=== PATIENT | male | born 1965 | race Caucasian/White ===

== ENCOUNTER → 2017-05-23 | Outpatient (CLI) | payer OTHER ==
--- NOTE | 2017-05-23 12:58 | RADIOLOGY REPORT (SQ) ---
EXAM DESCRIPTION: INJECT VENOUS ACCESS DEVICE COMPLETED DATE/TIME: 05/23/2017 11:26 am REASON FOR STUDY: Z45.2 ENCOUNTER FOR ADJUSTMENT AND MANAGEMENT OF VAD Z45.2 ENCOUNTER FOR ADJUSTME NT AND MANAGEMENT OF VAD COMPARISON: None. FLUOROSCOPY TIME: 29 seconds 4 series of digital images saved to PACS. TECHNIQUE: Intra-operative images acquired during surgical procedure to evaluate progress. NUMBER OF IMAGES: Cine fluoroscopic images. LIMITATIONS: None. FINDINGS: Patient had an unsuccessful chemotherapy infusion through the left sided permanent central line yesterday. He was sent today for evaluation of the pre-existing left permanent central line wi contrast injection under fluoro. The left anterior upper chest was prepped and draped in sterile fashion. A Stern needle was used to access the left-sided infusion port. On the initial fluoroscopy, the port is transected where it fruit or nut crops farm manager sses between the 1st rib and clavicle, with a 7 to 10 cm long segment of catheter in the right atrium . The hub of the catheter was injected with 10 mL of Isovue-300 contrast. There is a perforation in e catheter tubing with contrast tracking in the soft toward the axilla, and pooling of contrast betwe en the left 1st rib and clavicle. No intravascular contrast is identified. These findings were discussed with Dr. Harris. The patient had a successful chemotherapy infusion 2 weeks ago, and unsuccessful infusion yesterday. Removal of the existing left-sided catheter, snare of the catheter fragment from the right heart, and placement of a new right-sided permanent central l ine for chemotherapy infusion was discussed with Dr. Harris. This was also discussed with patient, who agreed to the procedure. Plan is to remove the pre-existing left permanent central line and catheter fragment, and place a new right-sided permanent central line tomorrow at [facility] in special procedures. IMPRESSION: Fragmentation of left permanent central line at the level of the 1st rib/clavicle, with catheter fragment right heart. COMMENT: Quality ID [id number]: Final reports for procedures using fluoroscopy that document radiation exp osure indices, or exposure time and number of fluorographic images (if radiation exposure indices are not available) Please consult full operative report of the attending physician for description of the procedure. TECHNICAL DOCUMENTATION: JOB ID: [id number] [employer]- All Rights Reserved
== END ==
LOC: RAD 10:40
PROVIDERS: ATTEND Internal Medicine
DX: Z45.2 Encounter for adjustment and management of vascular access device (principal)
CPT/HCPCS: 36598

== ENCOUNTER → 2017-07-26 | Outpatient (CLI) | payer OTHER ==
[2017-07-26 11:39] LABS: ABSOLUTE BASOPHILS # (AUTO) 0.1 10^3/uL (0.0-0.2); ABSOLUTE EOSINOPHILS # (AUTO) 0.1 10^3/uL (0.0-0.6); ABSOLUTE LYMPHOCYTES (AUTO) 2.7 10^3/uL (0.5-4.7); ABSOLUTE MONOCYTES (AUTO) 0.9 10^3/uL (0.1-1.4); ABSOLUTE NEUT (AUTO) 10.5 10^3/uL (1.7-8.2); BASOPHILS % (AUTO) 0.4 % (0-2); EOSINOPHILS % (AUTO) 0.4 % (0-6); HEMATOCRIT 42.5 % (37.9-51.0); HEMOGLOBIN 14.3 g/dL (13.5-17.0); LYMPHOCYTES % (AUTO) 19.1 % (13-45); MEAN CORPUSCULAR HEMOGLOBIN 30.1 pg (27.0-33.4); MEAN CORPUSCULAR HGB CONC 33.6 g/dL (32.0-36.0); MEAN CORPUSCULAR VOLUME 90 fl (80-97); MONOCYTES % (AUTO) 6.5 % (3-13); PLATELET COUNT 253 10^3/uL (150-450); RED BLOOD COUNT 4.74 10^6/uL (4.35-5.55); RED CELL DISTRIBUTION WIDTH 14.4 % (11.5-14.0); SEGMENTED NEUTROPHILS % (AUTO) 73.6 % (42-78); TOTAL CELLS COUNTED % (AUTO) 100 %; WHITE BLOOD COUNT 14.3 10^3/uL (4.0-10.5)
[2017-07-26 12:20] LABS: ALANINE AMINOTRANSFERASE 22 U/L (21-72); ALKALINE PHOSPHATASE 118 U/L (38-126); ANION GAP 14 (5-19); ASPARTATE AMINO TRANSFERASE 15 U/L (17-59); BILIRUBIN,DIRECT 0.3 mg/dL (0.0-0.4); BILIRUBIN,TOTAL 0.5 mg/dL (0.2-1.3); BLOOD UREA NITROGEN 15 mg/dL (7-20); C-REACTIVE PROTEIN 31.4 mg/L (<10.0); CALCIUM 9.8 mg/dL (8.4-10.2); CARBON DIOXIDE 31 mmol/L (22-30); CHLORIDE 99 mmol/L (98-107); GLUCOSE 185 mg/dL (75-110); POTASSIUM 3.5 mmol/L (3.6-5.0); SODIUM 144.4 mmol/L (137-145); TOTAL PROTEIN 7.4 g/dL (6.3-8.2)
[2017-07-26 12:27] LABS: ERYTHROCYTE SEDIMENTATION RATE 53 mm/hr (0-20)
--- NOTE | 2017-07-26 14:03 | RADIOLOGY REPORT (SQ) ---
EXAM DESCRIPTION: FOOT RIGHT COMPLETE COMPLETED DATE/TIME: 07/26/2017 11:21 am REASON FOR STUDY: NON PRESSURE ULCER RT FOOT FAT LAYER EXPOSED L97.512 NON-PRS CHRONIC ULCER OTH NE T RIGHT FOOT W FAT LAYER COMPARISON: None. NUMBER OF VIEWS: Three views. TECHNIQUE: AP, lateral and oblique radiographic images acquired of the right foot. LIMITATIONS: None. FINDINGS: Periarticular cortical destruction 1st interphalangeal joint. Adjacent skin ulceration. No definite foreign body. IMPRESSION: Osteomyelitis. TECHNICAL DOCUMENTATION: JOB ID: [id number] [employer]- All Rights Reserved
== END ==
LOC: WC 10:49
PROVIDERS: ATTEND Preventive Medicine Undersea and Hyperbaric Medicine
DX: L97.512 Non-pressure chronic ulcer of other part of right foot with fat layer exposed (principal)
CPT/HCPCS: 36415; 80053; 83036; 85025; 85652; 86140

== ENCOUNTER 2017-08-13 11:36 | Inpatient (IN) | payer OTHER ==
[2017-08-13] MEDS ORDERED: IPRATROPIUM/ALBUTEROL 0.5-2.5 MG/3 ML AMPUL NEB PRN (14:09)
[2017-08-13] MEDS ORDERED: ACETAMINOPHEN 325 MG TABLET PO PRN (14:09)
[2017-08-13] MEDS ORDERED: DEXTROSE 40% GEL 15 GM TUBE PO PRN ×4 (14:14→17:58)
[2017-08-13] MEDS ORDERED: GLUCAGON,HUMAN RECOMB 1 MG INJ IM PRN (14:14)
[2017-08-13] MEDS ORDERED: DEXTROSE 50%-WATER 25 GM/50 ML DISP.SYRIN IV PRN ×4 (14:14→17:58)
[2017-08-13] MEDS ORDERED: HYDRALAZINE HCL INJ/PF 20 MG/1 ML SDV IV PRN (14:30)
--- NOTE | 2017-08-13 14:35 | PDOC H&P ---
History of Present Illness Admission Date/PCP: 08/13/17 11:36 CAL COLE DPM Patient complains of: Rt toe pain History of Present Illness: NELY NEW is a 52 year old male with a past medical history of colon cancer with metastasis to the liver; last chemotherapy treatment approximately 2 weeks ago, insulin-dependent diabetes mellitus, and hypertension who was received as a direct admit from Dr. Cole's office for a complaint of right great toe pain with a chronic wound and concern for osteomyelitis. The patient states that the current wound has been present for 6-8 weeks. He states that Dr. Cole recently did an outpatient debridement of the toe and at his follow- up appointment was told that he was concerned that the toe was becoming gangrenous and may require amputation. The patient reports serous drainage, denies purulent drainage, foul smell, edema, or erythema of the surrounding skin. Unfortunately, outpatient records are not available for review. The patient will be admitted to the floor for workup of chronic diabetic foot wound with possible osteomyelitis. At the time of admission and dictation, the patient's home medications are unavailable. The patient is able to identify his home regiment; pharmacy staff have been notified for assistance. Past Medical History Cardiac Medical History: Reports: Hypertension Pulmonary Medical History: Reports: None EENT Medical History: Reports: None Neurological Medical History: Reports: None Endocrine Medical History: Reports: Diabetes Mellitus Type 1 Renal/ Medical History: Reports: None Malignancy Medical History: Reports: Colorectal Cancer, Liver Cancer GI Medical History: Reports: None Musculoskeltal Medical History: Reports: None Skin Medical History: Reports: None Psychiatric Medical History: Reports: General Anxiety Disorder Traumatic Medical History: Reports: None Hematology: Reports: None Infectious Medical History: Reports: None Past Surgical History Past Surgical History: Reports: Other - Partial colectomy Social History Information Source: Patient Lives with: Spouse/Significant other Smoking Status: Never Smoker Frequency of Alcohol Use: None Drugs: None Hx Prescription Drug Abuse: No - Advance Directive Resuscitation Status: Full Code Surrogate healthcare decision maker:: The patient's significant other; Nika Hurd ([phone]) Family History Family History: Other - Unknown; patient reports that he is adopted Parental Family History Reviewed: No - Unavailable; pt is adopted Children Family History Reviewed: NA Sibling(s) Family History Reviewed.: Unknown Medication/Allergy Allergies/Adverse Reactions: No Known Allergies Allergy (Unverified 08/13/17 14:25) Review of Systems Constitutional: ABSENT: chills, fever(s), headache(s), weight gain, weight loss Eyes: ABSENT: visual disturbances Ears: ABSENT: hearing changes Cardiovascular: ABSENT: chest pain, dyspnea on exertion, edema, orthropnea, palpitations Respiratory: ABSENT: cough, hemoptysis Gastrointestinal: ABSENT: abdominal pain, constipation, diarrhea, hematemesis, hematochezia, nausea, vomiting Genitourinary: ABSENT: dysuria, hematuria Musculoskeletal: PRESENT: joint swelling - Rt great toe Integumentary: PRESENT: wounds - Chronic wound to Rt great toe. ABSENT: rash Neurological: ABSENT: abnormal gait, abnormal speech, confusion, dizziness, focal weakness, syncope Psychiatric: ABSENT: anxiety, depression, homidical ideation, suicidal ideation Endocrine: ABSENT: cold intolerance, heat intolerance, polydipsia, polyuria Hematologic/Lymphatic: ABSENT: easy bleeding, easy bruising Physical Exam Vital Signs: Temp Pulse Resp BP Pulse Ox 97.9 F 87 16 118/86 H 95 08/13/17 12:14 08/13/17 12:14 08/13/17 12:14 08/13/17 12:14 08/13/17 12:14 Intake & Output 08/12/17 08/13/17 08/14/17 06:59 06:59 06:59 Weight 110 kg General appearance: PRESENT: no acute distress, obese, well-developed, well- nourished Head exam: PRESENT: atraumatic, normocephalic Eye exam: PRESENT: conjunctiva pink, EOMI, PERRLA. ABSENT: scleral icterus Ear exam: PRESENT: normal external ear exam Mouth exam: PRESENT: moist, tongue midline Neck exam: ABSENT: carotid bruit, JVD, lymphadenopathy, thyromegaly Respiratory exam: PRESENT: clear to auscultation rona, symmetrical, unlabored. ABSENT: rales, rhonchi, wheezes Cardiovascular exam: PRESENT: RRR, +S1, +S2. ABSENT: diastolic murmur, rubs, systolic murmur Pulses: PRESENT: normal dorsalis pedis pul Vascular exam: PRESENT: normal capillary refill GI/Abdominal exam: PRESENT: normal bowel sounds, soft. ABSENT: distended, guarding, mass, organolmegaly, rebound, tenderness Rectal exam: PRESENT: deferred Extremities exam: PRESENT: full ROM. ABSENT: calf tenderness, clubbing, pedal edema Neurological exam: PRESENT: alert, awake, oriented to person, oriented to place , oriented to time, oriented to situation, CN II-XII grossly intact. ABSENT: motor sensory deficit Psychiatric exam: PRESENT: appropriate affect, normal mood. ABSENT: homicidal ideation, suicidal ideation Skin exam: PRESENT: dry, warm, other - The dorsal aspect of the right great toe has an a 2 cm long linear wound. The wound bed is not visualized. There is slight serosanguineous drainage. No foul smell. The toe is edematous with slight erythema to the medial portion of the toe.. ABSENT: cyanosis, intact, rash Assessment & Plan - Diagnosis (1) Diabetic foot ulcer Qualifiers: Diabetic foot ulcer location: toe Diabetes mellitus type: type 1 Laterality: right Non-pressure ulcer stage: unspecified non-pressure ulcer stage Qualified Code(s): E10.621 - Type 1 diabetes mellitus with foot ulcer; L97.519 - Non-pressure chronic ulcer of other part of right foot with unspecified severity; L97.519 - Non-pressure chronic ulcer of other part of right foot with unspecified severity; L97.519 - Non-pressure chronic ulcer of other part of right foot with unspecified severity; L97.519 - Non-pressure chronic ulcer of other part of right foot with unspecified severity Is this a current diagnosis for this admission?: Yes Plan: The patient was referred as a direct admit from Dr. Cole's office. Patient states that he recently underwent outpatient debridement and at follow-up appointment was told that he would likely require amputation. Unfortunately, outpatient records are unavailable. We will obtain baseline lab work; CBC, CMP Will obtain x-ray with follow-up MRI likely. Anticipate need for surgical consultation. Will hold antibiotics pending initial workup. (2) Insulin dependent diabetes mellitus Is this a current diagnosis for this admission?: Yes Plan: The patient is placed on a consistent carb diet. We will resume home medication regimen once reconciled by pharmacy. Accu-Cheks before meals and at bedtime with Humalog for sliding scale coverage. (3) Hypertension Is this a current diagnosis for this admission?: Yes Plan: The patient is placed on a cardiac diet. We will resume home medication regimen once reconciled by pharmacy. IV hydralazine as needed. (4) Colon cancer metastasized to liver Plan: The patient is followed by Dr. Harris; last chemotherapy appointment was approximately 2 weeks ago. Will consider consultation following review of laboratory workup, or if the patient remains admitted for an extended stay. - Time Time Spent: 50 to 70 Minutes - Inpatient Certification Medical Necessity: Need for Surgery - probable amputation
[2017-08-13 15:02] LABS: ABSOLUTE EOSINOPHILS # (AUTO) 0.1 10^3/uL (0.0-0.6); ABSOLUTE LYMPHOCYTES (AUTO) 1.5 10^3/uL (0.5-4.7); ABSOLUTE MONOCYTES (AUTO) 0.7 10^3/uL (0.1-1.4); ABSOLUTE NEUT (AUTO) 4.6 10^3/uL (1.7-8.2); BASOPHILS % (AUTO) 0.7 % (0-2); EOSINOPHILS % (AUTO) 1.8 % (0-6); HEMATOCRIT 39.7 % (37.9-51.0); HEMOGLOBIN 13.7 g/dL (13.5-17.0); MEAN CORPUSCULAR HEMOGLOBIN 30.3 pg (27.0-33.4); MEAN CORPUSCULAR HGB CONC 34.5 g/dL (32.0-36.0); MEAN CORPUSCULAR VOLUME 88 fl (80-97); PLATELET COUNT 214 10^3/uL (150-450); RED BLOOD COUNT 4.52 10^6/uL (4.35-5.55); RED CELL DISTRIBUTION WIDTH 14.3 % (11.5-14.0); SEGMENTED NEUTROPHILS % (AUTO) 65.5 % (42-78); TOTAL CELLS COUNTED % (AUTO) 100 %
[2017-08-13 15:22] LABS: ALANINE AMINOTRANSFERASE 27 U/L (21-72); ALBUMIN 3.5 g/dL (3.5-5.0); ALKALINE PHOSPHATASE 110 U/L (38-126); ANION GAP 5 (5-19); ASPARTATE AMINO TRANSFERASE 22 U/L (17-59); BILIRUBIN,DIRECT 0.3 mg/dL (0.0-0.4); BILIRUBIN,TOTAL 0.3 mg/dL (0.2-1.3); BLOOD UREA NITROGEN 10 mg/dL (7-20); CALCIUM 9.4 mg/dL (8.4-10.2); CARBON DIOXIDE 34 mmol/L (22-30); CHLORIDE 98 mmol/L (98-107); GLUCOSE 258 mg/dL (75-110); POTASSIUM 4.3 mmol/L (3.6-5.0); SODIUM 137.4 mmol/L (137-145); TOTAL PROTEIN 6.6 g/dL (6.3-8.2)
--- NOTE | 2017-08-13 15:45 | RADIOLOGY REPORT (SQ) ---
EXAM DESCRIPTION: TOE RIGHT COMPLETED DATE/TIME: 08/13/2017 2:54 pm REASON FOR STUDY: 1st great toe pain COMPARISON: None. NUMBER OF VIEWS: Three views of the right great toe. LIMITATIONS: None. FINDINGS: Osseous destruction about the great toe IP joint. Fragmentation and loss of bone in the d istal aspect of the proximal phalanx and base of the distal phalanx. Adjacent soft tissue irregulari ty suggests ulcer. Adjacent bones are intact. The proximal half of the proximal phalanx of the grea t toe appears to be normal. OTHER: No other significant finding. IMPRESSION: Destructive process centered at the great toe IP joint, presumably osteomyelitis. TECHNICAL DOCUMENTATION: JOB ID: [id number]
[2017-08-13] MEDS ORDERED: GLUCAGON,HUMAN RECOMB 1 MG INJ SUBCUT PRN (17:58)
--- NOTE | 2017-08-13 17:58 | PDOC CONSULTATION ---
Consultation Consult Date: 08/13/17 Consult reason:: Diabetic foot infection History of Present Illness Admission Date/PCP: 08/13/17 11:36 CAL NAYLOR DPM Patient complains of: Infection of right great toe History of Present Illness: This is a 52-year-old gentleman who presents for admission to hospital secondary to an infected right great toe. He has been admitted by the hospitalist medicine service. He reports that over the past several months he has had an ulcer on the plantar aspect of the right great toe. He has been seen as an outpatient wound care center. Because of worsening infection, the patient presented to the hospital for admission. I was asked to see the patient in consultation. An MRI has been ordered by the hospitalist medicine service and is pending. Past Medical History Cardiac Medical History: Reports: Hypertension Pulmonary Medical History: Reports: None EENT Medical History: Reports: None Neurological Medical History: Reports: None Endocrine Medical History: Reports: Diabetes Mellitus Type 1 Renal/ Medical History: Reports: None Malignancy Medical History: Reports: Colorectal Cancer, Liver Cancer GI Medical History: Reports: None Musculoskeltal Medical History: Reports: None Skin Medical History: Reports: None Psychiatric Medical History: Reports: General Anxiety Disorder Traumatic Medical History: Reports: None Hematology: Reports: None Infectious Medical History: Reports: None Past Surgical History Past Surgical History: Reports: Other - Partial colectomy Social History Lives with: Spouse/Significant other Smoking Status: Never Smoker Frequency of Alcohol Use: None Drugs: None Hx Prescription Drug Abuse: No - Advance Directive Resuscitation Status: Full Code Family History Family History: Other - Unknown; patient reports that he is adopted Parental Family History Reviewed: No Children Family History Reviewed: No Sibling(s) Family History Reviewed.: No Medication/Allergy Allergies/Adverse Reactions: No Known Allergies Allergy (Unverified 08/13/17 14:25) Physical Exam Vital Signs: Temp Pulse Resp BP Pulse Ox 98.2 F 76 16 115/75 96 08/13/17 15:57 08/13/17 15:57 08/13/17 15:57 08/13/17 15:57 08/13/17 15:57 Intake & Output 08/12/17 08/13/17 08/14/17 06:59 06:59 06:59 Intake Total 266 Balance 266 Weight 110 kg General appearance: PRESENT: other - Chronically ill-appearing male peers somewhat older than his stated age. Respiratory exam: PRESENT: clear to auscultation rona Cardiovascular exam: PRESENT: RRR GI/Abdominal exam: PRESENT: other - Soft, nontender. Musculoskeletal exam: PRESENT: other - The right great toe is inflamed and erythematous. There is a open wound on the plantar aspect of the right great toe measuring approximately 2.5 cm, with purulent drainage from the wound. There is a palpable dorsalis pedis as well as posterior tibial pulse. Results Laboratory Results: 08/13/17 14:50 08/13/17 14:50 08/13/17 08/13/17 14:50 14:50 WBC 7.0 RBC 4.52 Hgb 13.7 Hct 39.7 MCV 88 MCH 30.3 MCHC 34.5 RDW 14.3 H Plt Count 214 Seg Neutrophils % 65.5 Lymphocytes % 22.0 Monocytes % 10.0 Eosinophils % 1.8 Basophils % 0.7 Absolute Neutrophils 4.6 Absolute Lymphocytes 1.5 Absolute Monocytes 0.7 Absolute Eosinophils 0.1 Absolute Basophils 0.0 Sodium 137.4 Potassium 4.3 Chloride 98 Carbon Dioxide 34 H Anion Gap 5 BUN 10 Creatinine 0.68 Est GFR ( Amer) > 60 Est GFR (Non-Af Amer) > 60 Glucose 258 H Calcium 9.4 Total Bilirubin 0.3 AST 22 ALT 27 Alkaline Phosphatase 110 Total Protein 6.6 Albumin 3.5 Impressions: Toe X-Ray 08/13/17 00:00 IMPRESSION: Destructive process centered at the great toe IP joint, presumably osteomyelitis. Assessment & Plan - Diagnosis (1) Diabetic foot ulcer Qualifiers: Diabetic foot ulcer location: toe Diabetes mellitus type: type 1 Laterality: right Non-pressure ulcer stage: unspecified non-pressure ulcer stage Qualified Code(s): E10.621 - Type 1 diabetes mellitus with foot ulcer; L97.519 - Non-pressure chronic ulcer of other part of right foot with unspecified severity; L97.519 - Non-pressure chronic ulcer of other part of right foot with unspecified severity; L97.519 - Non-pressure chronic ulcer of other part of right foot with unspecified severity; L97.519 - Non-pressure chronic ulcer of other part of right foot with unspecified severity Is this a current diagnosis for this admission?: Yes - Plan Summary Plan Summary: The patient is to have an MRI of the foot tonight. Clinically, I do not think that the toe is salvageable. I discussed this with the patient. The patient understands this. I would recommend we make him n.p.o. after midnight in anticipation of redictation of the right great toe tomorrow morning. This was discussed in detail with patient. He understands and agrees to proceed.
--- NOTE | 2017-08-13 18:07 | RADIOLOGY REPORT (SQ) ---
EXAM DESCRIPTION: MRI RT LOWER EXTREMITY WITHOUT COMPLETED DATE/TIME: 08/13/2017 5:54 pm REASON FOR STUDY: ? osteomyelitis Rt great toe/foot COMPARISON: Radiographs from earlier today demonstrating osteomyelitis. TECHNIQUE: Multiplanar imaging of the right forefoot to include fat and fluid sensitive sequences. LIMITATIONS: None. FINDINGS: BONE MARROW: As seen radiographically, extensive destruction of the great toe distal proxi mal phalanx and proximal distal phalanx, replaced by intermediate T1 soft tissue. Complete loss of b one integrity here with edema extending to the base of the proximal phalanx. No drainable fluid winifred ections detected. Normal marrow signal in the metatarsals and adjacent toes. SOFT TISSUES: As above. Amorphous inflammatory tissue at the site of osteomyelitis without drainable fluid collection. No tenosynovitis evident. OTHER: No other significant finding. IMPRESSION: Extensive destruction of the great toe as above. Consistent with osteomyelitis involvin g the great toe phalanges. Normal marrow signal in the metatarsal. No drainable abscess. TECHNICAL DOCUMENTATION: JOB ID: [id number] [employer]- All Rights Reserved
[2017-08-13] MEDS: HEPARIN SOD (PORCINE) 5,000 UNIT/ML 1 ML SYRINGE SUBCUT SCH (21:41)
[2017-08-13] MEDS: FAMOTIDINE 20 MG TABLET PO SCH (21:49)
[2017-08-13] MEDS: OXYCODONE HCL SR 10 MG TABLET PO SCH (21:50)
[2017-08-13] MEDS: ALPRAZOLAM 0.5 MG TABLET PO PRN (23:01)
[2017-08-14] MEDS: HEPARIN SOD (PORCINE) 5,000 UNIT/ML 1 ML SYRINGE SUBCUT SCH ×3 (05:13→21:27)
[2017-08-14 06:37] LABS: HEMATOCRIT 42.1 % (37.9-51.0); HEMOGLOBIN 14.1 g/dL (13.5-17.0); MEAN CORPUSCULAR HGB CONC 33.4 g/dL (32.0-36.0); MEAN CORPUSCULAR VOLUME 90 fl (80-97); PLATELET COUNT 219 10^3/uL (150-450); RED BLOOD COUNT 4.68 10^6/uL (4.35-5.55); RED CELL DISTRIBUTION WIDTH 14.7 % (11.5-14.0); WHITE BLOOD COUNT 5.7 10^3/uL (4.0-10.5)
[2017-08-14 06:52] LABS: ANION GAP 10 (5-19); BLOOD UREA NITROGEN 9 mg/dL (7-20); CALCIUM 9.7 mg/dL (8.4-10.2); CARBON DIOXIDE 30 mmol/L (22-30); CHLORIDE 100 mmol/L (98-107); GLUCOSE 178 mg/dL (75-110); SODIUM 139.8 mmol/L (137-145)
[2017-08-14] MEDS ORDERED: RINGERS SOLUTION,LACTATED 1,000 ML IV PRN (08:57)
[2017-08-14] MEDS: OXYCODONE HCL SR 10 MG TABLET PO SCH ×2 (09:42→21:27)
[2017-08-14] MEDS: FAMOTIDINE 20 MG TABLET PO SCH ×2 (09:42→21:27)
[2017-08-14] MEDS ORDERED: BUPIVACAINE HCL 0.5%-EPI 1:200000 INJ/PF 30 ML VIAL ONE (09:59)
[2017-08-14] MEDS ORDERED: FENTANYL CITRATE INJ/PF 100 MCG/2 ML AMPUL ONE (10:38)
[2017-08-14] MEDS ORDERED: MIDAZOLAM 2 MG/2 ML INJ ONE (10:39)
[2017-08-14] MEDS ORDERED: PROPOFOL INJ 200 MG/20 ML VIAL IV ONE (10:39)
[2017-08-14] MEDS ORDERED: KETAMINE HCL INJ 500 MG/10 ML VIAL ONE (10:43)
[2017-08-14] MEDS ORDERED: FERROUS SULFATE 325 MG TABLET PO SCH (11:00)
[2017-08-14] MEDS ORDERED: BUPIVACAINE HCL 0.25 % INJ/PF (2.5 MG/1 ML) 30 ML VIAL ONE (11:09)
[2017-08-14] MEDS ORDERED: FENTANYL CITRATE INJ/PF 100 MCG/2 ML AMPUL IV PRN ×3 (11:27)
[2017-08-14] MEDS ORDERED: PROMETHAZINE HCL INJ 25 MG/1 ML VIAL IV PRN (11:27)
[2017-08-14] MEDS ORDERED: DIPHENHYDRAMINE HCL 50 MG/ML VIAL IV PRN (11:27)
[2017-08-14] MEDS ORDERED: MORPHINE SULFATE 10 MG/ML INJ IV PRN (11:27)
[2017-08-14] MEDS ORDERED: MEPERIDINE HCL/PF INJ 25 MG/1 ML DISP.SYRIN IV PRN (11:27)
[2017-08-14] MEDS ORDERED: CEFAZOLIN 2 GM/D5W RTU 2 GM/50 ML RTUPB IV SCH (12:00)
[2017-08-14] MEDS ORDERED: BUPIVACAINE HCL 0.25 % INJ/PF (2.5 MG/1 ML) 30 ML VIAL INJ ONE (12:07)
--- NOTE | 2017-08-14 12:11 | Operative Report ---
Operative Report DATE OF SURGERY: 08/14/17 PREOPERATIVE DIAGNOSIS: Gangrene right great toe POSTOPERATIVE DIAGNOSIS: Gangrene right great toe OPERATION: Ray amputation of right great toe SURGEON: SASHA LOPEZ ANESTHESIA: LMAC TISSUE REMOVED OR ALTERED: Right great toe sent to pathology. Fragments of bone and soft tissue sent to microbiology for culture sensitivity and Gram stain COMPLICATIONS: none ESTIMATED BLOOD LOSS: Minimal INTRAOPERATIVE FINDINGS: Infected right great toe with necrotic changes PROCEDURE: After informed consent, patient taken to the operating room. After menstruation of IV sedation, the patient was prepped and draped in sterile fashion. 0.25% Marcaine was used for local anesthesia. An elliptical incision was made encompassing the right great toe. This was done with a 10 blade. Electrosurgery was then utilized to dissect through subcutaneous tissues. The first metatarsal head was identified. This was transected using a bone cutter. A rongeur was then used to smooth the edges. The amplitude toe was passed off the operative field and sent to pathology. Fragments of bone and soft tissue were sent to microbiology. Hemostasis was assured. 2-0 Vicryl suture was used to approximate the soft tissue. Interrupted 2-0 nylon sutures were then used in a vertical mattress fashion to close the skin. Sterile dressing was applied. The patient is awake from anesthesia and transferred to the recovery room.
[2017-08-14] MEDS ORDERED: PIPERACILLIN/TAZOBACTAM 4.5 GM VIAL IV SCH (12:59)
[2017-08-14] MEDS: INSULIN REG, HUMAN 100 UNIT/ML 3 ML VIAL (PYX) SUBCUT PRN ×2 (13:36→18:03)
[2017-08-14] MEDS: OXYCODONE HCL IR 5 MG TABLET PO PRN ×2 (13:51→18:03)
--- NOTE | 2017-08-14 14:29 | PDOC PROGRESS REPORT ---
Subjective Progress Note for:: 08/14/17 Subjective:: The patient is a 52-year-old male with a past medical history of insulin- dependent diabetes mellitus, hypertension, and colon cancer with liver metastasis who was admitted on 08/13/17 for a chronic wound to the right great toe concerning for osteomyelitis. Patient underwent a toe and mid first metatarsal amputation on 08/14/2017. The patient was seen on morning rounds prior to his surgery today. He states that his pain is well-controlled with his outpatient pain medications currently but he is concerned about increased pain following surgery. He also has questions with regard to the length of antibiotic therapy and timing of his discharge to home. He states that he is supposed to be getting in 2 weeks. Reason For Visit: RELATED TO GANGRENE Physical Exam Vital Signs: Temp Pulse Resp BP Pulse Ox 97.6 F 61 11 L 129/88 H 97 08/14/17 12:35 08/14/17 12:35 08/14/17 12:35 08/14/17 12:35 08/14/17 12:35 Intake & Output 08/13/17 08/14/17 08/15/17 06:59 06:59 06:59 Intake Total 686 1050 Output Total 250 Balance 686 800 Weight 101.8 kg General appearance: PRESENT: no acute distress, well-developed, well-nourished, other - Overweight Head exam: PRESENT: atraumatic, normocephalic Eye exam: PRESENT: conjunctiva pink, EOMI, PERRLA. ABSENT: scleral icterus Ear exam: PRESENT: normal external ear exam Mouth exam: PRESENT: moist, tongue midline Neck exam: ABSENT: carotid bruit, JVD, lymphadenopathy, thyromegaly Respiratory exam: PRESENT: clear to auscultation rona, symmetrical, unlabored. ABSENT: rales, rhonchi, wheezes Cardiovascular exam: PRESENT: RRR, +S1, +S2. ABSENT: diastolic murmur, rubs, systolic murmur Pulses: PRESENT: normal dorsalis pedis pul Vascular exam: PRESENT: normal capillary refill GI/Abdominal exam: PRESENT: normal bowel sounds, soft. ABSENT: distended, guarding, mass, organolmegaly, rebound, tenderness Rectal exam: PRESENT: deferred Extremities exam: PRESENT: full ROM, other - Right great toe with dressing in place; wound not visualized today.. ABSENT: calf tenderness, clubbing, pedal edema Neurological exam: PRESENT: alert, awake, oriented to person, oriented to place , oriented to time, oriented to situation, CN II-XII grossly intact. ABSENT: motor sensory deficit Psychiatric exam: PRESENT: appropriate affect, normal mood. ABSENT: homicidal ideation, suicidal ideation Skin exam: PRESENT: dry, intact, warm. ABSENT: cyanosis, rash Results Laboratory Results: 08/14/17 06:16 08/14/17 06:16 08/13/17 08/13/17 08/14/17 14:50 14:50 06:16 WBC 7.0 5.7 RBC 4.52 4.68 Hgb 13.7 14.1 Hct 39.7 42.1 MCV 88 90 MCH 30.3 30.0 MCHC 34.5 33.4 RDW 14.3 H 14.7 H Plt Count 214 219 Seg Neutrophils % 65.5 Lymphocytes % 22.0 Monocytes % 10.0 Eosinophils % 1.8 Basophils % 0.7 Absolute Neutrophils 4.6 Absolute Lymphocytes 1.5 Absolute Monocytes 0.7 Absolute Eosinophils 0.1 Absolute Basophils 0.0 Sodium 137.4 Potassium 4.3 Chloride 98 Carbon Dioxide 34 H Anion Gap 5 BUN 10 Creatinine 0.68 Est GFR ( Amer) > 60 Est GFR (Non-Af Amer) > 60 Glucose 258 H Calcium 9.4 Total Bilirubin 0.3 AST 22 ALT 27 Alkaline Phosphatase 110 Total Protein 6.6 Albumin 3.5 08/14/17 06:16 WBC RBC Hgb Hct MCV MCH MCHC RDW Plt Count Seg Neutrophils % Lymphocytes % Monocytes % Eosinophils % Basophils % Absolute Neutrophils Absolute Lymphocytes Absolute Monocytes Absolute Eosinophils Absolute Basophils Sodium 139.8 Potassium 4.0 Chloride 100 Carbon Dioxide 30 Anion Gap 10 BUN 9 Creatinine 0.71 Est GFR ( Amer) > 60 Est GFR (Non-Af Amer) > 60 Glucose 178 H Calcium 9.7 Total Bilirubin AST ALT Alkaline Phosphatase Total Protein Albumin Impressions: Lower Extremity MRI 08/13/17 00:00 IMPRESSION: Extensive destruction of the great toe as above. Consistent with osteomyelitis involving the great toe phalanges. Normal marrow signal in the metatarsal. No drainable abscess. Toe X-Ray 08/13/17 00:00 IMPRESSION: Destructive process centered at the great toe IP joint, presumably osteomyelitis. Assessment & Plan - Diagnosis (1) Diabetic foot ulcer Qualifiers: Diabetic foot ulcer location: toe Diabetes mellitus type: type 1 Laterality: right Non-pressure ulcer stage: unspecified non-pressure ulcer stage Qualified Code(s): E10.621 - Type 1 diabetes mellitus with foot ulcer; L97.519 - Non-pressure chronic ulcer of other part of right foot with unspecified severity; L97.519 - Non-pressure chronic ulcer of other part of right foot with unspecified severity; L97.519 - Non-pressure chronic ulcer of other part of right foot with unspecified severity; L97.519 - Non-pressure chronic ulcer of other part of right foot with unspecified severity Is this a current diagnosis for this admission?: Yes Plan: The patient was referred as a direct admit from Dr. Cole's office. Patient states that he recently underwent outpatient debridement and at follow-up appointment was told that he would likely require amputation. Unfortunately, outpatient records are unavailable. MRI demonstrated extensive destruction of the great toe consistent with osteomyelitis. Surgery's assistance and recommendations are greatly appreciated; patient underwent amputation of the right great toe today. He received Ancef on-call to the OR and was placed on Zosyn postoperatively. Wound cultures are pending. (2) Insulin dependent diabetes mellitus Is this a current diagnosis for this admission?: Yes Plan: The patient is placed on a consistent carb diet. Home medication reconciliation is completed; pt reportedly takes Toujeo 110 units daily. Blood glucose thus far do not indicate such a requirement. Will ask the conservation educator to meet with the patient to discuss dietary recommendations. Accu-Cheks before meals and at bedtime with Humalog for sliding scale coverage. Will hold on long acting insulin for now to further assess total insulin need; at this time, pt has only required 4 units of humalog. (3) Hypertension Is this a current diagnosis for this admission?: Yes Plan: The patient is placed on a cardiac diet. We will resume home medication; losartan. IV hydralazine as needed. (4) Colon cancer metastasized to liver Plan: The patient is followed by Dr. Harris; last chemotherapy appointment was approximately [address] Harris is consulted; appreciate his assistance and recommendations. Will continue the patient's outpatient pain medication regiment. - Time Time Spent with patient: 15-24 minutes Medications reviewed and adjusted accordingly: Yes - Inpatient Certification Based on my medical assessment, after consideration of the patient's comorbidities, presenting symptoms, or acuity I expect that the services needed warrant INPATIENT care.: Yes I certify that my determination is in accordance with my understanding of Medicare's requirements for reasonable and necessary INPATIENT services [42 CFR 412.3e].: Yes Medical Necessity: Need for IV Antibiotics
[2017-08-14] MEDS: PIPERACILLIN SODIUM/TAZOBACTAM 4.5 GM in NORMAL SALINE 100 ML IV SCH ×2 (17:41→23:00)
[2017-08-14] MEDS: GABAPENTIN 400 MG CAPSULE PO SCH (21:27)
[2017-08-14] MEDS: ALPRAZOLAM 0.5 MG TABLET PO PRN (21:41)
[2017-08-15] MEDS: OXYCODONE HCL IR 5 MG TABLET PO PRN ×3 (02:18→17:27)
[2017-08-15] MEDS: HEPARIN SOD (PORCINE) 5,000 UNIT/ML 1 ML SYRINGE SUBCUT SCH ×3 (05:53→21:26)
[2017-08-15] MEDS: GABAPENTIN 400 MG CAPSULE PO SCH ×3 (05:53→21:26)
[2017-08-15] MEDS: PIPERACILLIN SODIUM/TAZOBACTAM 4.5 GM in NORMAL SALINE 100 ML IV SCH ×4 (05:53→23:25)
[2017-08-15 07:06] LABS: HEMATOCRIT 40.6 % (37.9-51.0); HEMOGLOBIN 13.8 g/dL (13.5-17.0); MEAN CORPUSCULAR HEMOGLOBIN 30.3 pg (27.0-33.4); MEAN CORPUSCULAR HGB CONC 34.1 g/dL (32.0-36.0); MEAN CORPUSCULAR VOLUME 89 fl (80-97); PLATELET COUNT 220 10^3/uL (150-450); RED BLOOD COUNT 4.56 10^6/uL (4.35-5.55); RED CELL DISTRIBUTION WIDTH 14.3 % (11.5-14.0); WHITE BLOOD COUNT 5.7 10^3/uL (4.0-10.5)
[2017-08-15 07:32] LABS: ANION GAP 9 (5-19); BLOOD UREA NITROGEN 11 mg/dL (7-20); CALCIUM 9.5 mg/dL (8.4-10.2); CARBON DIOXIDE 33 mmol/L (22-30); CHLORIDE 99 mmol/L (98-107); GLUCOSE 184 mg/dL (75-110); SODIUM 140.6 mmol/L (137-145)
[2017-08-15] MEDS ORDERED: FLUOXETINE HCL 20 MG CAPSULE PO SCH (08:00)
[2017-08-15] MEDS: INSULIN REG, HUMAN 100 UNIT/ML 3 ML VIAL (PYX) SUBCUT PRN ×3 (08:34→17:27)
--- NOTE | 2017-08-15 08:47 | PDOC CONSULTATION ---
Consultation Consult Date: 08/15/17 Attending physician:: ARMIDA FARLEY Consult reason:: Patient stage IV colon cancer here with right great toe osteomyelitis status post toe amputation History of Present Illness Admission Date/PCP: 08/13/17 11:36 CAL NAYLOR DPM Patient complains of: Right foot pain, infection, stage IV colon cancer History of Present Illness: 52-year-old male with known history of stage IV colon cancer, diagnosed about a year ago now, has been on active chemotherapy until about 6 weeks ago. Over the last 3 months several issues have happened, first his left Port-A-Cath failed and chemotherapy infiltrated that area, ultimately there was no necrosis or damage to that area but the port could not be removed and another port was placed on the right chest wall. That port is functioning perfectly well. We restarted chemotherapy but unfortunately the emergence of a right great toe diabetic ulcer came about. This is being managed by wound care as an outpatient , but unfortunately it failed outpatient management and progress to full osteomyelitis and gangrene. Therefore toe amputation was necessary and this was done. We have not been able to give chemotherapy for about 6-8 weeks now. He has lost about 25 pounds just in the last 2 months but since diagnosis is last about 60-70 pounds. Past Medical History Cardiac Medical History: Reports: Hypertension Pulmonary Medical History: Reports: None EENT Medical History: Reports: None Neurological Medical History: Reports: None Endocrine Medical History: Reports: Diabetes Mellitus Type 1 Renal/ Medical History: Reports: None Malignancy Medical History: Reports: Colorectal Cancer - With liver metastasis, Liver Cancer GI Medical History: Reports: None Musculoskeltal Medical History: Reports: None Skin Medical History: Reports: None Psychiatric Medical History: Reports: General Anxiety Disorder Traumatic Medical History: Reports: None Hematology: Reports: None Infectious Medical History: Reports: None Past Surgical History Past Surgical History: Reports: Other - Partial colectomy Social History Information Source: Patient Lives with: Spouse/Significant other Smoking Status: Never Smoker Frequency of Alcohol Use: None Drugs: None Hx Prescription Drug Abuse: No - Advance Directive Resuscitation Status: Full Code Family History Family History: Other - Unknown; patient reports that he is adopted Parental Family History Reviewed: Yes Children Family History Reviewed: Yes Sibling(s) Family History Reviewed.: Yes Medication/Allergy Home Medications: Alprazolam [Xanax 0.25 mg Tablet] 0.25 mg PO Q8 08/14/17 Azelastine HCl 2 spray NASL BID 08/14/17 Baclofen [Baclofen 10 mg Tablet] 10 mg PO BIDP PRN 08/14/17 Eszopiclone [Lunesta] 3 mg PO QHS 08/14/17 Ferrous Sulfate [Feosol 325 mg Tablet] 325 mg PO Q2D 08/14/17 Fluoxetine HCl [Prozac 20 mg Capsule] 40 mg PO QAM 08/14/17 Gabapentin [Neurontin] 800 mg PO Q8 08/14/17 Insulin Aspart [Novolog Flexpen] 30 unit SQ MEALS 08/14/17 Insulin Glargine,Hum.rec.anlog [Toujeo Solostar] 110 unit SQ DAILY 08/14/17 Losartan Potassium [Cozaar 50 mg Tablet] 50 mg PO DAILY 08/14/17 Metformin HCl [Glucophage] 1,000 mg PO BIDBS 08/14/17 Multivitamin [Tab-A-Salma (Multiple Vitamin) Tablet] 1 tab PO DAILY 08/14/17 Omeprazole 20 mg PO ACBRKFST 08/14/17 Oxycodone HCl [Oxycontin] 30 mg PO Q12 08/14/17 Polyethylene Glycol 3350 [Miralax Powder 17 gm/Packet] 17 gm PO DAILY 08/14/17 Rivaroxaban [Xarelto] 20 mg PO WSUPPER 08/14/17 Allergies/Adverse Reactions: No Known Allergies Allergy (Unverified 08/13/17 14:25) Review of Systems Constitutional: ABSENT: chills, fever(s), headache(s), weight gain, weight loss Eyes: ABSENT: visual disturbances Ears: ABSENT: hearing changes Cardiovascular: ABSENT: chest pain, dyspnea on exertion, edema, orthropnea, palpitations Respiratory: ABSENT: cough, hemoptysis Gastrointestinal: ABSENT: abdominal pain, constipation, diarrhea, hematemesis, hematochezia, nausea, vomiting Genitourinary: ABSENT: dysuria, hematuria Musculoskeletal: ABSENT: joint swelling Integumentary: ABSENT: rash, wounds Neurological: ABSENT: abnormal gait, abnormal speech, confusion, dizziness, focal weakness, syncope Psychiatric: ABSENT: anxiety, depression, homidical ideation, suicidal ideation Endocrine: ABSENT: cold intolerance, heat intolerance, polydipsia, polyuria Hematologic/Lymphatic: ABSENT: easy bleeding, easy bruising Physical Exam Vital Signs: Temp Pulse Resp BP Pulse Ox 97.6 F 68 14 116/73 95 08/15/17 07:48 08/15/17 07:48 08/15/17 07:48 08/15/17 07:48 08/15/17 07:48 Intake & Output 08/14/17 08/15/17 08/16/17 06:59 06:59 06:59 Intake Total 686 2091 Output Total 250 Balance 686 1841 Weight 101.8 kg 105.2 kg General appearance: PRESENT: no acute distress, well-developed, well-nourished Head exam: PRESENT: atraumatic, normocephalic Eye exam: PRESENT: conjunctiva pink, EOMI, PERRLA. ABSENT: scleral icterus Ear exam: PRESENT: normal external ear exam Mouth exam: PRESENT: moist, tongue midline Neck exam: ABSENT: carotid bruit, JVD, lymphadenopathy, thyromegaly Respiratory exam: PRESENT: clear to auscultation rona. ABSENT: rales, rhonchi, wheezes Cardiovascular exam: PRESENT: RRR. ABSENT: diastolic murmur, rubs, systolic murmur Pulses: PRESENT: normal dorsalis pedis pul Vascular exam: PRESENT: normal capillary refill GI/Abdominal exam: PRESENT: normal bowel sounds, soft. ABSENT: distended, guarding, mass, organolmegaly, rebound, tenderness Rectal exam: PRESENT: deferred Extremities exam: PRESENT: other - Right great toe amputation Neurological exam: PRESENT: alert, awake, oriented to person, oriented to place , oriented to time, oriented to situation, CN II-XII grossly intact. ABSENT: motor sensory deficit Psychiatric exam: PRESENT: appropriate affect, normal mood. ABSENT: homicidal ideation, suicidal ideation Skin exam: PRESENT: dry, intact, warm. ABSENT: cyanosis, rash Results Laboratory Results: 08/15/17 06:48 08/15/17 06:48 08/15/17 08/15/17 06:48 06:48 WBC 5.7 RBC 4.56 Hgb 13.8 Hct 40.6 MCV 89 MCH 30.3 MCHC 34.1 RDW 14.3 H Plt Count 220 Sodium 140.6 Potassium 4.0 Chloride 99 Carbon Dioxide 33 H Anion Gap 9 BUN 11 Creatinine 0.78 Est GFR ( Amer) > 60 Est GFR (Non-Af Amer) > 60 Glucose 184 H Calcium 9.5 08/14/17 11:25 Toe - Right First Gram Stain - Final Impressions: Lower Extremity MRI 08/13/17 00:00 IMPRESSION: Extensive destruction of the great toe as above. Consistent with osteomyelitis involving the great toe phalanges. Normal marrow signal in the metatarsal. No drainable abscess. Toe X-Ray 08/13/17 00:00 IMPRESSION: Destructive process centered at the great toe IP joint, presumably osteomyelitis. Assessment & Plan - Diagnosis (1) Colon cancer metastasized to liver Is this a current diagnosis for this admission?: Yes Plan: Patient will have continued hold of chemotherapy until we are ready to restart and healing is appropriate, probably will need to heal for another 2 weeks before we restart, we will make arrangements for him to follow-up. - Time Time Spent: Greater than 70 Minutes - Inpatient Certification Based on my medical assessment, after consideration of the patient's comorbidities, presenting symptoms, or acuity I expect that the services needed warrant INPATIENT care.: Yes I certify that my determination is in accordance with my understanding of Medicare's requirements for reasonable and necessary INPATIENT services [42 CFR 412.3e].: Yes Medical Necessity: Need for IV Antibiotics, Need for Surgery
[2017-08-15] MEDS: MULTIVITAMIN TABLET PO SCH (09:48)
[2017-08-15] MEDS: FAMOTIDINE 20 MG TABLET PO SCH ×2 (09:48→21:26)
[2017-08-15] MEDS: OXYCODONE HCL SR 10 MG TABLET PO SCH ×2 (09:49→21:25)
[2017-08-15] MEDS: POLYETHYLENE GLYCOL 3350 POWDER 17 GM/1 PACKET PO SCH (09:54)
[2017-08-15] MEDS: LOSARTAN POTASSIUM 50 MG TABLET PO SCH (09:54)
--- NOTE | 2017-08-15 10:17 | PDOC PROGRESS REPORT ---
Subjective Progress Note for:: 08/15/17 Subjective:: Some amputation site related pain otherwise no complaints Reason For Visit: RELATED TO GANGRENE Physical Exam Vital Signs: Temp Pulse Resp BP Pulse Ox 97.6 F 68 14 116/73 95 08/15/17 07:48 08/15/17 07:48 08/15/17 07:48 08/15/17 07:48 08/15/17 07:48 Intake & Output 08/14/17 08/15/17 08/16/17 06:59 06:59 06:59 Intake Total 686 2091 Output Total 250 Balance 686 1841 Weight 101.8 kg 105.2 kg General appearance: PRESENT: no acute distress, cooperative Respiratory exam: PRESENT: clear to auscultation rona Cardiovascular exam: PRESENT: RRR Extremities exam: PRESENT: other - Right great toe amputation site is clean and intact. No erythema. No drainage. Results Laboratory Results: 08/15/17 06:48 08/15/17 06:48 08/15/17 08/15/17 06:48 06:48 WBC 5.7 RBC 4.56 Hgb 13.8 Hct 40.6 MCV 89 MCH 30.3 MCHC 34.1 RDW 14.3 H Plt Count 220 Sodium 140.6 Potassium 4.0 Chloride 99 Carbon Dioxide 33 H Anion Gap 9 BUN 11 Creatinine 0.78 Est GFR ( Amer) > 60 Est GFR (Non-Af Amer) > 60 Glucose 184 H Calcium 9.5 08/14/17 11:25 Toe - Right First Gram Stain - Final Impressions: Lower Extremity MRI 08/13/17 00:00 IMPRESSION: Extensive destruction of the great toe as above. Consistent with osteomyelitis involving the great toe phalanges. Normal marrow signal in the metatarsal. No drainable abscess. Toe X-Ray 08/13/17 00:00 IMPRESSION: Destructive process centered at the great toe IP joint, presumably osteomyelitis. Assessment & Plan - Diagnosis (1) Gangrene Is this a current diagnosis for this admission?: Yes Plan: Of right great toe status post amputation. The wound site looks good. Would continue IV antibiotics for a couple more days. Await culture results prior to discharge so we can get him on the proper antibiotics for a couple weeks as an outpatient.
--- NOTE | 2017-08-15 13:37 | Physician Advisory Note ---
Physician Advisor ProgressNote .: Pursuant to the plan for [facility], I have reviewed the medical record for this patient. Physician Advisor Statement: Please consider documenting, if you agree: 1. "Osteomyelitis [& gangrene?] of Rt great toe" (progress note says "MRI c/w OM" but doesn't state that pt actually has OM - very picky point, but the type of point payers use to get out of covering appropriate hospital care ...) Thanks! CK
--- NOTE | 2017-08-15 15:59 | PDOC PROGRESS REPORT ---
Subjective Reason For Visit: RELATED TO GANGRENE Physical Exam Vital Signs: Temp Pulse Resp BP Pulse Ox 98.2 F 72 16 136/76 H 95 08/15/17 11:12 08/15/17 11:33 08/15/17 11:33 08/15/17 11:12 08/15/17 11:12 Intake & Output 08/14/17 08/15/17 08/16/17 06:59 06:59 06:59 Intake Total 686 2091 Output Total 250 Balance 686 1841 Weight 101.8 kg 105.2 kg Results Laboratory Results: 08/15/17 06:48 08/15/17 06:48 08/15/17 08/15/17 06:48 06:48 WBC 5.7 RBC 4.56 Hgb 13.8 Hct 40.6 MCV 89 MCH 30.3 MCHC 34.1 RDW 14.3 H Plt Count 220 Sodium 140.6 Potassium 4.0 Chloride 99 Carbon Dioxide 33 H Anion Gap 9 BUN 11 Creatinine 0.78 Est GFR ( Amer) > 60 Est GFR (Non-Af Amer) > 60 Glucose 184 H Calcium 9.5 08/14/17 11:25 Toe - Right First Gram Stain - Final Impressions: Lower Extremity MRI 08/13/17 00:00 IMPRESSION: Extensive destruction of the great toe as above. Consistent with osteomyelitis involving the great toe phalanges. Normal marrow signal in the metatarsal. No drainable abscess. Toe X-Ray 08/13/17 00:00 IMPRESSION: Destructive process centered at the great toe IP joint, presumably osteomyelitis. Assessment & Plan - Diagnosis (1) Osteomyelitis of toe of right foot Is this a current diagnosis for this admission?: Yes Plan: Secondary to diabetic foot ulcer. The patient was referred as a direct admit from Dr. Cole's office. Patient states that he recently underwent outpatient debridement and at follow-up appointment was told that he would likely require amputation. Unfortunately, outpatient records are unavailable. MRI demonstrated extensive destruction of the great toe consistent with osteomyelitis. Wound cultures are pending Surgery's assistance and recommendations are greatly appreciated; patient underwent amputation of the right great toe yesterday. Now on Zosyn. (2) Insulin dependent diabetes mellitus Is this a current diagnosis for this admission?: Yes Plan: A1c 9.2% The patient is placed on a consistent carb diet. Home medication reconciliation is completed; pt reportedly takes Toujeo 110 units daily. Blood glucose thus far do not indicate such a requirement. Will ask the steward/stewardess smoke room to meet with the patient to discuss dietary recommendations. Accu-Cheks before meals and at bedtime with Humalog for sliding scale coverage. Will start Lantus 4 units nightly. (3) Hypertension Is this a current diagnosis for this admission?: Yes Plan: The patient is placed on a cardiac diet. We will resume home medication; losartan. IV hydralazine as needed. (4) Colon cancer metastasized to liver Is this a current diagnosis for this admission?: Yes Plan: The patient is followed by Dr. Harris; last chemotherapy appointment was approximately [address] Harris is consulted; appreciate his assistance and recommendations. Will continue the patient's outpatient pain medication regiment. (5) Diabetic foot ulcer Qualifiers: Diabetic foot ulcer location: toe Diabetes mellitus type: type 1 Laterality: right Non-pressure ulcer stage: unspecified non-pressure ulcer stage Qualified Code(s): E10.621 - Type 1 diabetes mellitus with foot ulcer; L97.519 - Non-pressure chronic ulcer of other part of right foot with unspecified severity; L97.519 - Non-pressure chronic ulcer of other part of right foot with unspecified severity; L97.519 - Non-pressure chronic ulcer of other part of right foot with unspecified severity; L97.519 - Non-pressure chronic ulcer of other part of right foot with unspecified severity Is this a current diagnosis for this admission?: Yes Plan: Plan as above. - Time Time Spent with patient: 15-24 minutes Medications reviewed and adjusted accordingly: Yes Anticipated discharge: Home - Inpatient Certification Based on my medical assessment, after consideration of the patient's comorbidities, presenting symptoms, or acuity I expect that the services needed warrant INPATIENT care.: Yes I certify that my determination is in accordance with my understanding of Medicare's requirements for reasonable and necessary INPATIENT services [42 CFR 412.3e].: Yes Medical Necessity: Need for IV Antibiotics
[2017-08-15] MEDS: INSULIN GLARGINE,HUM.REC.ANLOG 300 UNIT/3 ML INSULN.PEN SUBCUT SCH (21:26)
[2017-08-15] MEDS: ALPRAZOLAM 0.5 MG TABLET PO PRN (21:26)
[2017-08-16] MEDS: GABAPENTIN 400 MG CAPSULE PO SCH ×3 (05:44→21:30)
[2017-08-16] MEDS: PIPERACILLIN SODIUM/TAZOBACTAM 4.5 GM in NORMAL SALINE 100 ML IV SCH ×3 (05:44→17:41)
[2017-08-16] MEDS: OXYCODONE HCL IR 5 MG TABLET PO PRN ×2 (05:44→13:48)
[2017-08-16] MEDS: HEPARIN SOD (PORCINE) 5,000 UNIT/ML 1 ML SYRINGE SUBCUT SCH ×3 (05:44→21:30)
--- NOTE | 2017-08-16 08:39 | PDOC PROGRESS REPORT ---
Subjective Progress Note for:: 08/16/17 Subjective:: Feeling better, appetite improved Reason For Visit: RELATED TO GANGRENE Physical Exam Vital Signs: Temp Pulse Resp BP Pulse Ox 97.9 F 83 16 136/89 H 96 08/16/17 07:22 08/16/17 07:22 08/16/17 08:00 08/16/17 07:22 08/16/17 07:22 Intake & Output 08/15/17 08/16/17 08/17/17 06:59 06:59 06:59 Intake Total 2091 2810 Output Total 250 Balance 1841 2810 Weight 105.2 kg 105.3 kg General appearance: PRESENT: no acute distress, well-developed, well-nourished Head exam: PRESENT: atraumatic, normocephalic Eye exam: PRESENT: conjunctiva pink, EOMI, PERRLA. ABSENT: scleral icterus Ear exam: PRESENT: normal external ear exam Mouth exam: PRESENT: moist, tongue midline Neck exam: ABSENT: carotid bruit, JVD, lymphadenopathy, thyromegaly Respiratory exam: PRESENT: clear to auscultation rona. ABSENT: rales, rhonchi, wheezes Cardiovascular exam: PRESENT: RRR. ABSENT: diastolic murmur, rubs, systolic murmur Pulses: PRESENT: normal dorsalis pedis pul Vascular exam: PRESENT: normal capillary refill GI/Abdominal exam: PRESENT: normal bowel sounds, soft. ABSENT: distended, guarding, mass, organolmegaly, rebound, tenderness Rectal exam: PRESENT: deferred Extremities exam: PRESENT: full ROM. ABSENT: calf tenderness, clubbing, pedal edema Neurological exam: PRESENT: alert, awake, oriented to person, oriented to place , oriented to time, oriented to situation, CN II-XII grossly intact. ABSENT: motor sensory deficit Psychiatric exam: PRESENT: appropriate affect, normal mood. ABSENT: homicidal ideation, suicidal ideation Skin exam: PRESENT: dry, intact, warm. ABSENT: cyanosis, rash Results Laboratory Results: 08/15/17 06:48 08/15/17 06:48 08/14/17 11:25 Toe - Right First Gram Stain - Final Impressions: Lower Extremity MRI 08/13/17 00:00 IMPRESSION: Extensive destruction of the great toe as above. Consistent with osteomyelitis involving the great toe phalanges. Normal marrow signal in the metatarsal. No drainable abscess. Toe X-Ray 08/13/17 00:00 IMPRESSION: Destructive process centered at the great toe IP joint, presumably osteomyelitis. Assessment & Plan - Diagnosis (1) Colon cancer metastasized to liver Is this a current diagnosis for this admission?: Yes Plan: Plan for outpt continuation of therapy when healed appropriately, maybe 2-3 weeks needed, will con't to follow while admitted - Time Time Spent with patient: 25-34 minutes
[2017-08-16 09:04] LABS: HEMATOCRIT 41.2 % (37.9-51.0); HEMOGLOBIN 13.7 g/dL (13.5-17.0); MEAN CORPUSCULAR HEMOGLOBIN 29.8 pg (27.0-33.4); MEAN CORPUSCULAR HGB CONC 33.3 g/dL (32.0-36.0); MEAN CORPUSCULAR VOLUME 90 fl (80-97); PLATELET COUNT 234 10^3/uL (150-450); RED CELL DISTRIBUTION WIDTH 14.6 % (11.5-14.0); WHITE BLOOD COUNT 5.3 10^3/uL (4.0-10.5)
[2017-08-16] MEDS: POLYETHYLENE GLYCOL 3350 POWDER 17 GM/1 PACKET PO SCH (09:08)
[2017-08-16] MEDS: OXYCODONE HCL SR 10 MG TABLET PO SCH ×2 (09:12→21:30)
[2017-08-16] MEDS: MULTIVITAMIN TABLET PO SCH (09:13)
[2017-08-16] MEDS: LOSARTAN POTASSIUM 50 MG TABLET PO SCH (09:13)
[2017-08-16] MEDS: FAMOTIDINE 20 MG TABLET PO SCH ×2 (09:14→21:30)
[2017-08-16 09:22] LABS: ANION GAP 9 (5-19); BLOOD UREA NITROGEN 8 mg/dL (7-20); CALCIUM 9.3 mg/dL (8.4-10.2); CARBON DIOXIDE 31 mmol/L (22-30); CHLORIDE 101 mmol/L (98-107); GLUCOSE 162 mg/dL (75-110); POTASSIUM 3.8 mmol/L (3.6-5.0); SODIUM 140.8 mmol/L (137-145)
[2017-08-16] MEDS: INSULIN REG, HUMAN 100 UNIT/ML 3 ML VIAL (PYX) SUBCUT PRN ×3 (13:44→21:31)
--- NOTE | 2017-08-16 14:18 | PDOC PROGRESS REPORT ---
Subjective Progress Note for:: 08/16/17 Subjective:: The patient is a 52-year-old male with a past medical history of insulin- dependent diabetes mellitus, hypertension, and colon cancer with liver metastasis who was admitted on 08/13/17 for a chronic wound to the right great toe concerning for osteomyelitis. Patient underwent a toe and mid first metatarsal amputation on 08/14/2017. The patient was seen on morning rounds. He is found resting in bed comfortably on room air. He states that his pain is adequately well controlled with his home pain medication regimen. He states that he has met with the religious educator and appreciates their advice on managing his insulin needs given his fluctuating appetite with regards to chemotherapy. He is hopeful to be discharged as soon as possible and does ask to go home today. Otherwise he has no questions or concerns at this time. Reason For Visit: RELATED TO GANGRENE Physical Exam Vital Signs: Temp Pulse Resp BP Pulse Ox 98.2 F 87 16 135/75 H 96 08/16/17 11:54 08/16/17 11:54 08/16/17 11:54 08/16/17 11:54 08/16/17 11:54 Intake & Output 08/15/17 08/16/17 08/17/17 06:59 06:59 06:59 Intake Total 2091 2810 Output Total 250 Balance 1841 2810 Weight 105.2 kg 105.3 kg General appearance: PRESENT: no acute distress, well-developed, well-nourished, other - Overweight Head exam: PRESENT: atraumatic, normocephalic Eye exam: PRESENT: conjunctiva pink, EOMI, PERRLA. ABSENT: scleral icterus Ear exam: PRESENT: normal external ear exam Mouth exam: PRESENT: moist, tongue midline Neck exam: ABSENT: carotid bruit, JVD, lymphadenopathy, thyromegaly Respiratory exam: PRESENT: clear to auscultation rona, symmetrical, unlabored. ABSENT: rales, rhonchi, wheezes Cardiovascular exam: PRESENT: RRR, +S1, +S2. ABSENT: diastolic murmur, rubs, systolic murmur Pulses: PRESENT: normal dorsalis pedis pul Vascular exam: PRESENT: normal capillary refill GI/Abdominal exam: PRESENT: normal bowel sounds, soft. ABSENT: distended, guarding, mass, organolmegaly, rebound, tenderness Rectal exam: PRESENT: deferred Extremities exam: PRESENT: full ROM, other - Right toe amputation; surgical site not visualized as dressing is in place.. ABSENT: calf tenderness, clubbing , pedal edema Neurological exam: PRESENT: alert, awake, oriented to person, oriented to place , oriented to time, oriented to situation, CN II-XII grossly intact. ABSENT: motor sensory deficit Psychiatric exam: PRESENT: appropriate affect, normal mood. ABSENT: homicidal ideation, suicidal ideation Skin exam: PRESENT: dry, intact, warm. ABSENT: cyanosis, rash Results Laboratory Results: 08/16/17 08:53 08/16/17 08:53 08/16/17 08/16/17 08:53 08:53 WBC 5.3 RBC 4.60 Hgb 13.7 Hct 41.2 MCV 90 MCH 29.8 MCHC 33.3 RDW 14.6 H Plt Count 234 Sodium 140.8 Potassium 3.8 Chloride 101 Carbon Dioxide 31 H Anion Gap 9 BUN 8 Creatinine 0.77 Est GFR ( Amer) > 60 Est GFR (Non-Af Amer) > 60 Glucose 162 H Calcium 9.3 08/14/17 11:25 Toe - Right First Gram Stain - Final Impressions: Lower Extremity MRI 08/13/17 00:00 IMPRESSION: Extensive destruction of the great toe as above. Consistent with osteomyelitis involving the great toe phalanges. Normal marrow signal in the metatarsal. No drainable abscess. Toe X-Ray 08/13/17 00:00 IMPRESSION: Destructive process centered at the great toe IP joint, presumably osteomyelitis. Assessment & Plan - Diagnosis (1) Osteomyelitis of toe of right foot Is this a current diagnosis for this admission?: Yes Plan: Secondary to diabetic foot ulcer. The patient was referred as a direct admit from Dr. Cole's office. Patient states that he recently underwent outpatient debridement and at follow-up appointment was told that he would likely require amputation. Unfortunately, outpatient records are unavailable. MRI demonstrated extensive destruction of the great toe consistent with osteomyelitis. Wound cultures are pending Appreciate Surgery's assistance and recommendations; he is now postop day 2 s/p right great toe amputation. Continue Zosyn. (2) Insulin dependent diabetes mellitus Is this a current diagnosis for this admission?: Yes Plan: A1c 9.2% The patient is placed on a consistent carb diet. Home medication reconciliation is completed; pt reportedly takes Toujeo 110 units daily. Blood glucose thus far do not indicate such a requirement. Will ask the religious educator to meet with the patient to discuss dietary recommendations. Accu-Cheks before meals and at bedtime with Humalog for sliding scale coverage. Continue Lantus 4 units nightly. (3) Hypertension Is this a current diagnosis for this admission?: Yes Plan: Adequately controlled. The patient is placed on a cardiac diet. We will continue home medication; losartan. IV hydralazine as needed. (4) Colon cancer metastasized to liver Is this a current diagnosis for this admission?: Yes Plan: The patient is followed by Dr. Harris; last chemotherapy appointment was approximately [address] Harris is consulted; appreciate his assistance and recommendations. Will continue the patient's outpatient pain medication regiment. (5) Diabetic foot ulcer Qualifiers: Diabetic foot ulcer location: toe Diabetes mellitus type: type 1 Laterality: right Non-pressure ulcer stage: unspecified non-pressure ulcer stage Qualified Code(s): E10.621 - Type 1 diabetes mellitus with foot ulcer; L97.519 - Non-pressure chronic ulcer of other part of right foot with unspecified severity; L97.519 - Non-pressure chronic ulcer of other part of right foot with unspecified severity; L97.519 - Non-pressure chronic ulcer of other part of right foot with unspecified severity; L97.519 - Non-pressure chronic ulcer of other part of right foot with unspecified severity Is this a current diagnosis for this admission?: Yes Plan: Plan as above. - Time Time Spent with patient: 25-34 minutes Medications reviewed and adjusted accordingly: Yes Anticipated discharge: Home
--- NOTE | 2017-08-16 21:12 | PDOC PROGRESS REPORT ---
Subjective Progress Note for:: 08/16/17 Subjective:: No new complaints. Is wandering about going home. Reason For Visit: RELATED TO GANGRENE Physical Exam Vital Signs: Temp Pulse Resp BP Pulse Ox 98.0 F 75 18 119/74 98 08/16/17 19:50 08/16/17 19:50 08/16/17 19:50 08/16/17 19:50 08/16/17 19:50 Intake & Output 08/15/17 08/16/17 08/17/17 06:59 06:59 06:59 Intake Total 2091 2810 793 Output Total 250 5 Balance 1841 2810 788 Weight 105.2 kg 105.3 kg General appearance: PRESENT: no acute distress Head exam: PRESENT: normocephalic Eye exam: PRESENT: EOMI Mouth exam: PRESENT: moist Neck exam: ABSENT: carotid bruit, full ROM, JVD, lymphadenopathy, meningismus, tenderness, thyromegaly, tracheal deviation, tracheostomy, other Respiratory exam: PRESENT: clear to auscultation rona Cardiovascular exam: PRESENT: RRR, +S1, +S2 GI/Abdominal exam: PRESENT: normal bowel sounds, soft Extremities exam: PRESENT: other - Ray amputation right great toe with dressing in place Musculoskeletal exam: PRESENT: other - Ray amputation right great toe with dressing in place Neurological exam: PRESENT: alert, awake, oriented to person, oriented to place , oriented to time, CN II-XII grossly intact Results Laboratory Results: 08/16/17 08:53 08/16/17 08:53 08/16/17 08/16/17 08:53 08:53 WBC 5.3 RBC 4.60 Hgb 13.7 Hct 41.2 MCV 90 MCH 29.8 MCHC 33.3 RDW 14.6 H Plt Count 234 Sodium 140.8 Potassium 3.8 Chloride 101 Carbon Dioxide 31 H Anion Gap 9 BUN 8 Creatinine 0.77 Est GFR ( Amer) > 60 Est GFR (Non-Af Amer) > 60 Glucose 162 H Calcium 9.3 08/14/17 11:25 Toe - Right First Gram Stain - Final Impressions: Lower Extremity MRI 08/13/17 00:00 IMPRESSION: Extensive destruction of the great toe as above. Consistent with osteomyelitis involving the great toe phalanges. Normal marrow signal in the metatarsal. No drainable abscess. Toe X-Ray 08/13/17 00:00 IMPRESSION: Destructive process centered at the great toe IP joint, presumably osteomyelitis. Assessment & Plan - Diagnosis (1) Status post amputation of toe of right foot Plan: Await final culture results Continue present wound care (2) Diabetic foot ulcer Qualifiers: Diabetic foot ulcer location: toe Diabetes mellitus type: type 1 Laterality: right Non-pressure ulcer stage: unspecified non-pressure ulcer stage Qualified Code(s): E10.621 - Type 1 diabetes mellitus with foot ulcer; L97.519 - Non-pressure chronic ulcer of other part of right foot with unspecified severity; L97.519 - Non-pressure chronic ulcer of other part of right foot with unspecified severity; L97.519 - Non-pressure chronic ulcer of other part of right foot with unspecified severity; L97.519 - Non-pressure chronic ulcer of other part of right foot with unspecified severity Is this a current diagnosis for this admission?: Yes Plan: s/p ray amputation of right great toe (3) Osteomyelitis of toe of right foot Is this a current diagnosis for this admission?: Yes Plan: s/p ray amputation of right great toe. Await final culture results - Time Time Spent with patient: 15-24 minutes
[2017-08-16] MEDS: INSULIN GLARGINE,HUM.REC.ANLOG 300 UNIT/3 ML INSULN.PEN SUBCUT SCH (21:32)
[2017-08-17] MEDS: PIPERACILLIN SODIUM/TAZOBACTAM 4.5 GM in NORMAL SALINE 100 ML IV SCH ×4 (00:35→18:32)
[2017-08-17] MEDS: HEPARIN SOD (PORCINE) 5,000 UNIT/ML 1 ML SYRINGE SUBCUT SCH ×3 (06:31→21:24)
[2017-08-17] MEDS: GABAPENTIN 400 MG CAPSULE PO SCH ×3 (06:31→21:24)
[2017-08-17 06:33] LABS: HEMOGLOBIN 13.8 g/dL (13.5-17.0); MEAN CORPUSCULAR HEMOGLOBIN 30.1 pg (27.0-33.4); MEAN CORPUSCULAR HGB CONC 33.5 g/dL (32.0-36.0); MEAN CORPUSCULAR VOLUME 90 fl (80-97); PLATELET COUNT 229 10^3/uL (150-450); RED BLOOD COUNT 4.57 10^6/uL (4.35-5.55); RED CELL DISTRIBUTION WIDTH 14.8 % (11.5-14.0); WHITE BLOOD COUNT 5.1 10^3/uL (4.0-10.5)
[2017-08-17 06:53] LABS: ANION GAP 6 (5-19); BLOOD UREA NITROGEN 10 mg/dL (7-20); CALCIUM 9.7 mg/dL (8.4-10.2); CARBON DIOXIDE 33 mmol/L (22-30); CHLORIDE 100 mmol/L (98-107); GLUCOSE 175 mg/dL (75-110); POTASSIUM 4.1 mmol/L (3.6-5.0)
[2017-08-17] MEDS: POLYETHYLENE GLYCOL 3350 POWDER 17 GM/1 PACKET PO SCH (09:28)
[2017-08-17] MEDS: LOSARTAN POTASSIUM 50 MG TABLET PO SCH (09:30)
[2017-08-17] MEDS: FAMOTIDINE 20 MG TABLET PO SCH ×2 (09:30→21:25)
[2017-08-17] MEDS: OXYCODONE HCL SR 10 MG TABLET PO SCH ×2 (09:31→21:25)
[2017-08-17] MEDS: MULTIVITAMIN TABLET PO SCH (09:31)
--- NOTE | 2017-08-17 13:15 | PDOC PROGRESS REPORT ---
Subjective Progress Note for:: 08/17/17 Subjective:: No acute events overnight, pt doing well this am, discussed with hospitalist team, surgical team is awaiting culture and sensitivity on bone specimen, d/c on hold until we have that to make decision on IV atbx regimen at home. Today spent >35 min in discussion w/ pt and various teams on care. Reason For Visit: RELATED TO GANGRENE Physical Exam Vital Signs: Temp Pulse Resp BP Pulse Ox 97.3 F 63 12 120/71 93 08/17/17 07:53 08/17/17 07:53 08/17/17 07:53 08/17/17 07:53 08/17/17 10:31 Intake & Output 08/16/17 08/17/17 08/18/17 06:59 06:59 06:59 Intake Total 2810 2106 Output Total 5 Balance 2810 2101 Weight 105.3 kg 111.5 kg General appearance: PRESENT: no acute distress, well-developed, well-nourished Head exam: PRESENT: atraumatic, normocephalic Eye exam: PRESENT: conjunctiva pink, EOMI, PERRLA. ABSENT: scleral icterus Ear exam: PRESENT: normal external ear exam Mouth exam: PRESENT: moist, tongue midline Neck exam: ABSENT: carotid bruit, JVD, lymphadenopathy, thyromegaly Respiratory exam: PRESENT: clear to auscultation rona. ABSENT: rales, rhonchi, wheezes Cardiovascular exam: PRESENT: RRR. ABSENT: diastolic murmur, rubs, systolic murmur Pulses: PRESENT: normal dorsalis pedis pul Vascular exam: PRESENT: normal capillary refill GI/Abdominal exam: PRESENT: normal bowel sounds, soft. ABSENT: distended, guarding, mass, organolmegaly, rebound, tenderness Rectal exam: PRESENT: deferred Extremities exam: PRESENT: full ROM. ABSENT: calf tenderness, clubbing, pedal edema Neurological exam: PRESENT: alert, awake, oriented to person, oriented to place , oriented to time, oriented to situation, CN II-XII grossly intact. ABSENT: motor sensory deficit Psychiatric exam: PRESENT: appropriate affect, normal mood. ABSENT: homicidal ideation, suicidal ideation Skin exam: PRESENT: dry, intact, warm. ABSENT: cyanosis, rash Results Laboratory Results: 08/17/17 05:34 08/17/17 05:34 08/17/17 08/17/17 05:34 05:34 WBC 5.1 RBC 4.57 Hgb 13.8 Hct 41.0 MCV 90 MCH 30.1 MCHC 33.5 RDW 14.8 H Plt Count 229 Sodium 139.0 Potassium 4.1 Chloride 100 Carbon Dioxide 33 H Anion Gap 6 BUN 10 Creatinine 0.72 Est GFR ( Amer) > 60 Est GFR (Non-Af Amer) > 60 Glucose 175 H Calcium 9.7 08/14/17 11:25 Toe - Right First Gram Stain - Final Impressions: Lower Extremity MRI 08/13/17 00:00 IMPRESSION: Extensive destruction of the great toe as above. Consistent with osteomyelitis involving the great toe phalanges. Normal marrow signal in the metatarsal. No drainable abscess. Toe X-Ray 08/13/17 00:00 IMPRESSION: Destructive process centered at the great toe IP joint, presumably osteomyelitis. Assessment & Plan - Diagnosis (1) Colon cancer metastasized to liver Is this a current diagnosis for this admission?: Yes Plan: Con't rx as outpt (2) Osteomyelitis of toe of right foot Is this a current diagnosis for this admission?: Yes Plan: Atbx con't per surgery team, discussion as above. - Time Time Spent with patient: 35 or more minutes - Inpatient Certification Based on my medical assessment, after consideration of the patient's comorbidities, presenting symptoms, or acuity I expect that the services needed warrant INPATIENT care.: Yes I certify that my determination is in accordance with my understanding of Medicare's requirements for reasonable and necessary INPATIENT services [42 CFR 412.3e].: Yes Medical Necessity: Need for IV Antibiotics
[2017-08-17] MEDS: OXYCODONE HCL IR 5 MG TABLET PO PRN ×2 (15:10→20:27)
--- NOTE | 2017-08-17 15:15 | PDOC PROGRESS REPORT ---
Subjective Progress Note for:: 08/17/17 Subjective:: The patient is a 52-year-old male with a past medical history of insulin- dependent diabetes mellitus, hypertension, and colon cancer with liver metastasis who was admitted on 08/13/17 for a chronic wound to the right great toe concerning for osteomyelitis. Patient underwent a toe and mid first metatarsal amputation on 08/14/2017. The patient was seen on morning rounds. He is found resting in bed comfortably on room air. He states that his pain is adequately well controlled with his home pain medication regimen. He reports that he is feeling "better than I have in ages." Otherwise he has no questions or concerns at this time. Reason For Visit: RELATED TO GANGRENE Physical Exam Vital Signs: Temp Pulse Resp BP Pulse Ox 97.3 F 63 12 120/71 93 08/17/17 07:53 08/17/17 07:53 08/17/17 07:53 08/17/17 07:53 08/17/17 10:31 Intake & Output 08/16/17 08/17/17 08/18/17 06:59 06:59 06:59 Intake Total 2810 2106 Output Total 5 Balance 2810 2101 Weight 105.3 kg 111.5 kg General appearance: PRESENT: no acute distress, well-developed, well-nourished, other - Overweight Head exam: PRESENT: atraumatic, normocephalic Eye exam: PRESENT: conjunctiva pink, EOMI, PERRLA. ABSENT: scleral icterus Ear exam: PRESENT: normal external ear exam Mouth exam: PRESENT: moist, tongue midline Neck exam: ABSENT: carotid bruit, JVD, lymphadenopathy, thyromegaly Respiratory exam: PRESENT: clear to auscultation rona, symmetrical, unlabored. ABSENT: rales, rhonchi, wheezes Cardiovascular exam: PRESENT: RRR, +S1, +S2. ABSENT: diastolic murmur, rubs, systolic murmur Pulses: PRESENT: normal dorsalis pedis pul Vascular exam: PRESENT: normal capillary refill GI/Abdominal exam: PRESENT: normal bowel sounds, soft. ABSENT: distended, guarding, mass, organolmegaly, rebound, tenderness Rectal exam: PRESENT: deferred Extremities exam: PRESENT: full ROM, other - s/p rt great toe amputation; surgical incision well approximated with sutures. Slight errythema. No edema or drainage noted.. ABSENT: calf tenderness, clubbing, pedal edema Neurological exam: PRESENT: alert, awake, oriented to person, oriented to place , oriented to time, oriented to situation, CN II-XII grossly intact. ABSENT: motor sensory deficit Psychiatric exam: PRESENT: appropriate affect, normal mood. ABSENT: homicidal ideation, suicidal ideation Skin exam: PRESENT: dry, intact, warm, other - as above. ABSENT: cyanosis, rash Results Laboratory Results: 08/17/17 05:34 08/17/17 05:34 08/17/17 08/17/17 05:34 05:34 WBC 5.1 RBC 4.57 Hgb 13.8 Hct 41.0 MCV 90 MCH 30.1 MCHC 33.5 RDW 14.8 H Plt Count 229 Sodium 139.0 Potassium 4.1 Chloride 100 Carbon Dioxide 33 H Anion Gap 6 BUN 10 Creatinine 0.72 Est GFR ( Amer) > 60 Est GFR (Non-Af Amer) > 60 Glucose 175 H Calcium 9.7 08/14/17 11:25 Toe - Right First Gram Stain - Final Impressions: Lower Extremity MRI 08/13/17 00:00 IMPRESSION: Extensive destruction of the great toe as above. Consistent with osteomyelitis involving the great toe phalanges. Normal marrow signal in the metatarsal. No drainable abscess. Toe X-Ray 08/13/17 00:00 IMPRESSION: Destructive process centered at the great toe IP joint, presumably osteomyelitis. Assessment & Plan - Diagnosis (1) Osteomyelitis of toe of right foot Is this a current diagnosis for this admission?: Yes Plan: Secondary to diabetic foot ulcer. The patient was referred as a direct admit from Dr. Cole's office. Patient states that he recently underwent outpatient debridement and at follow-up appointment was told that he would likely require amputation. Unfortunately, outpatient records are unavailable. MRI demonstrated extensive destruction of the great toe consistent with osteomyelitis. Wound cultures: Gram positive cocci Appreciate Surgery's assistance and recommendations; he is now postop day 3 s/p right great toe amputation. Per surgery recommendations; disposition is pending wound culture results. Continue Zosyn. (2) Insulin dependent diabetes mellitus Is this a current diagnosis for this admission?: Yes Plan: A1c 9.2% The patient is placed on a consistent carb diet. Will ask the artist blacksmith to meet with the patient to discuss dietary recommendations. Accu-Cheks before meals and at bedtime with Humalog for sliding scale coverage. Continue Lantus 4 units nightly. (3) Hypertension Is this a current diagnosis for this admission?: Yes Plan: Adequately controlled. The patient is placed on a cardiac diet. We will continue home medication; losartan. IV hydralazine as needed. (4) Colon cancer metastasized to liver Is this a current diagnosis for this admission?: Yes Plan: The patient is followed by Dr. Harris; last chemotherapy appointment was approximately [address] Harris is consulted; appreciate his assistance and recommendations. Will continue the patient's outpatient pain medication regiment. (5) Diabetic foot ulcer Qualifiers: Diabetic foot ulcer location: toe Diabetes mellitus type: type 1 Laterality: right Non-pressure ulcer stage: unspecified non-pressure ulcer stage Qualified Code(s): E10.621 - Type 1 diabetes mellitus with foot ulcer; L97.519 - Non-pressure chronic ulcer of other part of right foot with unspecified severity; L97.519 - Non-pressure chronic ulcer of other part of right foot with unspecified severity; L97.519 - Non-pressure chronic ulcer of other part of right foot with unspecified severity; L97.519 - Non-pressure chronic ulcer of other part of right foot with unspecified severity Is this a current diagnosis for this admission?: Yes Plan: Plan as above. - Time Time Spent with patient: 25-34 minutes Anticipated discharge: Home
[2017-08-17] MEDS: INSULIN REG, HUMAN 100 UNIT/ML 3 ML VIAL (PYX) SUBCUT PRN ×2 (16:57→21:30)
[2017-08-17] MEDS: INSULIN GLARGINE,HUM.REC.ANLOG 300 UNIT/3 ML INSULN.PEN SUBCUT SCH (21:27)
[2017-08-18] MEDS: PIPERACILLIN SODIUM/TAZOBACTAM 4.5 GM in NORMAL SALINE 100 ML IV SCH ×4 (01:31→18:36)
[2017-08-18] MEDS: HEPARIN SOD (PORCINE) 5,000 UNIT/ML 1 ML SYRINGE SUBCUT SCH ×3 (06:12→21:31)
[2017-08-18] MEDS: GABAPENTIN 400 MG CAPSULE PO SCH ×3 (06:12→21:33)
[2017-08-18] MEDS: OXYCODONE HCL IR 5 MG TABLET PO PRN ×3 (06:46→21:32)
[2017-08-18] MEDS: INSULIN REG, HUMAN 100 UNIT/ML 3 ML VIAL (PYX) SUBCUT PRN ×3 (08:16→21:38)
[2017-08-18] MEDS: MULTIVITAMIN TABLET PO SCH (11:26)
[2017-08-18] MEDS: LOSARTAN POTASSIUM 50 MG TABLET PO SCH (11:27)
[2017-08-18] MEDS: OXYCODONE HCL SR 10 MG TABLET PO SCH ×2 (11:27→21:32)
[2017-08-18] MEDS: FAMOTIDINE 20 MG TABLET PO SCH ×2 (11:27→21:33)
[2017-08-18] MEDS: POLYETHYLENE GLYCOL 3350 POWDER 17 GM/1 PACKET PO SCH (11:29)
--- NOTE | 2017-08-18 13:27 | PDOC PROGRESS REPORT ---
Subjective Progress Note for:: 08/18/17 Subjective:: The patient is a 52-year-old male with a past medical history of insulin- dependent diabetes mellitus, hypertension, and colon cancer with liver metastasis who was admitted on 08/13/17 for a chronic wound to the right great toe concerning for osteomyelitis. Patient underwent a toe and mid first metatarsal amputation on 08/14/2017. The patient was seen on morning rounds. He is found resting in bed comfortably on room air. He states that his pain is adequately well controlled with his home pain medication regimen. He has no questions or concerns today. Reason For Visit: RELATED TO GANGRENE Physical Exam Vital Signs: Temp Pulse Resp BP Pulse Ox 97.9 F 66 16 126/78 H 98 08/17/17 23:58 08/17/17 23:58 08/17/17 23:58 08/17/17 23:58 08/17/17 23:58 Intake & Output 08/17/17 08/18/17 08/19/17 06:59 06:59 06:59 Intake Total 2106 1594 Output Total 5 Balance 2101 1594 Weight 111.5 kg 111.5 kg General appearance: PRESENT: no acute distress, cooperative, well-developed, well-nourished, other - Overweight Head exam: PRESENT: atraumatic, normocephalic Eye exam: PRESENT: conjunctiva pink, EOMI, PERRLA. ABSENT: scleral icterus Ear exam: PRESENT: normal external ear exam Mouth exam: PRESENT: moist, tongue midline Teeth exam: PRESENT: poor dentation Neck exam: ABSENT: carotid bruit, JVD, lymphadenopathy, thyromegaly Respiratory exam: PRESENT: clear to auscultation rona, symmetrical, unlabored. ABSENT: rales, rhonchi, wheezes Cardiovascular exam: PRESENT: RRR, +S1, +S2. ABSENT: diastolic murmur, rubs, systolic murmur Pulses: PRESENT: normal dorsalis pedis pul Vascular exam: PRESENT: normal capillary refill GI/Abdominal exam: PRESENT: normal bowel sounds, soft. ABSENT: distended, guarding, mass, organolmegaly, rebound, tenderness Rectal exam: PRESENT: deferred Extremities exam: PRESENT: full ROM. ABSENT: calf tenderness, clubbing, pedal edema Neurological exam: PRESENT: alert, awake, oriented to person, oriented to place , oriented to time, oriented to situation, CN II-XII grossly intact. ABSENT: motor sensory deficit Psychiatric exam: PRESENT: appropriate affect, normal mood. ABSENT: homicidal ideation, suicidal ideation Skin exam: PRESENT: dry, warm. ABSENT: cyanosis, intact - Surgical incision is not visualized today. No erythema or edema noted to the other toes of the same foot., rash Results Laboratory Results: 08/17/17 05:34 08/17/17 05:34 08/14/17 11:25 Toe - Right First Gram Stain - Final Impressions: Lower Extremity MRI 08/13/17 00:00 IMPRESSION: Extensive destruction of the great toe as above. Consistent with osteomyelitis involving the great toe phalanges. Normal marrow signal in the metatarsal. No drainable abscess. Toe X-Ray 08/13/17 00:00 IMPRESSION: Destructive process centered at the great toe IP joint, presumably osteomyelitis. Assessment & Plan - Diagnosis (1) Osteomyelitis of toe of right foot Is this a current diagnosis for this admission?: Yes Plan: Secondary to diabetic foot ulcer. MRI demonstrated extensive destruction of the great toe consistent with osteomyelitis. Wound cultures: Gram positive cocci Appreciate Surgery's assistance and recommendations; he is now s/p right great toe amputation. Per surgery recommendations; disposition is pending wound culture results. Continue Zosyn. (2) Insulin dependent diabetes mellitus Is this a current diagnosis for this admission?: Yes Plan: A1c 9.2% The patient is placed on a consistent carb diet. Will ask the family educator to meet with the patient to discuss dietary recommendations. Accu-Cheks before meals and at bedtime with Humalog for sliding scale coverage. Continue Lantus 4 units nightly. (3) Hypertension Is this a current diagnosis for this admission?: Yes Plan: Adequately controlled. The patient is placed on a cardiac diet. We will continue home medication; losartan. IV hydralazine as needed. (4) Colon cancer metastasized to liver Is this a current diagnosis for this admission?: Yes Plan: The patient is followed by Dr. Harris; last chemotherapy appointment was approximately [address] Harris is consulted; appreciate his assistance and recommendations. Will continue the patient's outpatient pain medication regiment. (5) Diabetic foot ulcer Qualifiers: Diabetic foot ulcer location: toe Diabetes mellitus type: type 1 Laterality: right Non-pressure ulcer stage: unspecified non-pressure ulcer stage Qualified Code(s): E10.621 - Type 1 diabetes mellitus with foot ulcer; L97.519 - Non-pressure chronic ulcer of other part of right foot with unspecified severity; L97.519 - Non-pressure chronic ulcer of other part of right foot with unspecified severity; L97.519 - Non-pressure chronic ulcer of other part of right foot with unspecified severity; L97.519 - Non-pressure chronic ulcer of other part of right foot with unspecified severity Is this a current diagnosis for this admission?: Yes Plan: Plan as above. - Time Time Spent with patient: 15-24 minutes Medications reviewed and adjusted accordingly: Yes Anticipated discharge: Home
--- NOTE | 2017-08-18 15:53 | PDOC PROGRESS REPORT ---
Subjective Progress Note for:: 08/18/17 Subjective:: No fresh complaints. Prelim culture results show Gram Positive Cocci in chains Reason For Visit: RELATED TO GANGRENE Physical Exam Vital Signs: Temp Pulse Resp BP Pulse Ox 97.9 F 66 16 126/78 H 98 08/17/17 23:58 08/17/17 23:58 08/17/17 23:58 08/17/17 23:58 08/17/17 23:58 Intake & Output 08/17/17 08/18/17 08/19/17 06:59 06:59 06:59 Intake Total 2106 1594 Output Total 5 Balance 2101 1594 Weight 111.5 kg 111.5 kg General appearance: PRESENT: no acute distress, obese Respiratory exam: PRESENT: clear to auscultation rona Cardiovascular exam: PRESENT: RRR, +S1, +S2 Pulses: PRESENT: other - 2+ Dorsalis pedis pulse on the right foot Vascular exam: PRESENT: normal capillary refill GI/Abdominal exam: PRESENT: normal bowel sounds, soft Extremities exam: PRESENT: other - Right great toe ray amputation wound is intact with interrupted stitches in place. there is a 1 cm area distally that is slightly raw and granulating; there is some periwound erythema to about a 2cm halo. 2+ dorsalis pedis pulse on the right foot. Neurological exam: PRESENT: alert, awake, oriented to person, oriented to place , oriented to time, oriented to situation, CN II-XII grossly intact Results Laboratory Results: 08/17/17 05:34 08/17/17 05:34 08/14/17 11:25 Toe - Right First Gram Stain - Final Impressions: Lower Extremity MRI 08/13/17 00:00 IMPRESSION: Extensive destruction of the great toe as above. Consistent with osteomyelitis involving the great toe phalanges. Normal marrow signal in the metatarsal. No drainable abscess. Toe X-Ray 08/13/17 00:00 IMPRESSION: Destructive process centered at the great toe IP joint, presumably osteomyelitis. Assessment & Plan - Diagnosis (1) Status post amputation of toe of right foot Plan: Still some periwound erythema. Continue empiric iv antibiotics while awaiting final culture result. (2) Diabetic foot ulcer Qualifiers: Diabetic foot ulcer location: toe Diabetes mellitus type: type 1 Laterality: right Non-pressure ulcer stage: unspecified non-pressure ulcer stage Qualified Code(s): E10.621 - Type 1 diabetes mellitus with foot ulcer; L97.519 - Non-pressure chronic ulcer of other part of right foot with unspecified severity; L97.519 - Non-pressure chronic ulcer of other part of right foot with unspecified severity; L97.519 - Non-pressure chronic ulcer of other part of right foot with unspecified severity; L97.519 - Non-pressure chronic ulcer of other part of right foot with unspecified severity Is this a current diagnosis for this admission?: Yes (3) Osteomyelitis of toe of right foot Is this a current diagnosis for this admission?: Yes - Time Time Spent with patient: 15-24 minutes Medications reviewed and adjusted accordingly: Yes Anticipated discharge: Home Within: within 72 hours
[2017-08-18] MEDS: INSULIN GLARGINE,HUM.REC.ANLOG 300 UNIT/3 ML INSULN.PEN SUBCUT SCH (21:39)
[2017-08-18] MEDS ORDERED: ZOLPIDEM TARTRATE 5 MG TABLET ONE (21:40)
[2017-08-18] MEDS ORDERED: ZOLPIDEM TARTRATE 5 MG TABLET PO SCH (22:00)
[2017-08-19] MEDS: PIPERACILLIN SODIUM/TAZOBACTAM 4.5 GM in NORMAL SALINE 100 ML IV SCH ×3 (00:02→12:07)
[2017-08-19] MEDS: HEPARIN SOD (PORCINE) 5,000 UNIT/ML 1 ML SYRINGE SUBCUT SCH (05:56)
[2017-08-19] MEDS: GABAPENTIN 400 MG CAPSULE PO SCH (05:57)
[2017-08-19] MEDS: OXYCODONE HCL IR 5 MG TABLET PO PRN (06:15)
[2017-08-19] MEDS: INSULIN REG, HUMAN 100 UNIT/ML 3 ML VIAL (PYX) SUBCUT PRN ×2 (08:00→12:06)
[2017-08-19] MEDS ORDERED: FLUOXETINE HCL 20 MG CAPSULE PO SCH (08:00)
--- NOTE | 2017-08-19 08:46 | PDOC PROGRESS REPORT ---
Subjective Progress Note for:: 08/19/17 Subjective:: No acute events overnight, awaiting culture results Reason For Visit: RELATED TO GANGRENE Physical Exam Vital Signs: Temp Pulse Resp BP Pulse Ox 97.4 F 61 16 121/81 95 08/19/17 07:22 08/19/17 07:22 08/19/17 07:22 08/19/17 07:22 08/19/17 07:22 Intake & Output 08/18/17 08/19/17 08/20/17 06:59 06:59 06:59 Intake Total 1594 1633 Output Total 6 Balance 1594 1627 Weight 111.5 kg 112.9 kg General appearance: PRESENT: no acute distress, well-developed, well-nourished Head exam: PRESENT: atraumatic, normocephalic Eye exam: PRESENT: conjunctiva pink, EOMI, PERRLA. ABSENT: scleral icterus Ear exam: PRESENT: normal external ear exam Mouth exam: PRESENT: moist, tongue midline Neck exam: ABSENT: carotid bruit, JVD, lymphadenopathy, thyromegaly Respiratory exam: PRESENT: clear to auscultation rona. ABSENT: rales, rhonchi, wheezes Cardiovascular exam: PRESENT: RRR. ABSENT: diastolic murmur, rubs, systolic murmur Pulses: PRESENT: normal dorsalis pedis pul Vascular exam: PRESENT: normal capillary refill GI/Abdominal exam: PRESENT: normal bowel sounds, soft. ABSENT: distended, guarding, mass, organolmegaly, rebound, tenderness Rectal exam: PRESENT: deferred Extremities exam: PRESENT: full ROM. ABSENT: calf tenderness, clubbing, pedal edema Neurological exam: PRESENT: alert, awake, oriented to person, oriented to place , oriented to time, oriented to situation, CN II-XII grossly intact. ABSENT: motor sensory deficit Psychiatric exam: PRESENT: appropriate affect, normal mood. ABSENT: homicidal ideation, suicidal ideation Skin exam: PRESENT: dry, intact, warm. ABSENT: cyanosis, rash Results Laboratory Results: 08/17/17 05:34 08/17/17 05:34 08/14/17 11:25 Toe - Right First Gram Stain - Final 08/14/17 11:25 Toe - Right First Wound Culture - Final Enterococcus Avium Impressions: Lower Extremity MRI 08/13/17 00:00 IMPRESSION: Extensive destruction of the great toe as above. Consistent with osteomyelitis involving the great toe phalanges. Normal marrow signal in the metatarsal. No drainable abscess. Toe X-Ray 08/13/17 00:00 IMPRESSION: Destructive process centered at the great toe IP joint, presumably osteomyelitis. Assessment & Plan - Diagnosis (1) Colon cancer metastasized to liver Is this a current diagnosis for this admission?: Yes Plan: Plan for restart Rx as an outpatient once healed (2) Osteomyelitis of toe of right foot Is this a current diagnosis for this admission?: Yes Plan: Culture results pending, once they are there and they can decide on antibiotic course - Time Time Spent with patient: 15-24 minutes
--- NOTE | 2017-08-19 08:59 | PDOC PROGRESS REPORT ---
Subjective Progress Note for:: 08/19/17 Subjective:: Patient feels better, is suffering with minimal weightbearing right foot. Reason For Visit: RELATED TO GANGRENE Physical Exam Vital Signs: Temp Pulse Resp BP Pulse Ox 97.4 F 61 16 121/81 95 08/19/17 07:22 08/19/17 07:22 08/19/17 07:22 08/19/17 07:22 08/19/17 07:22 Intake & Output 08/18/17 08/19/17 08/20/17 06:59 06:59 06:59 Intake Total 1594 1633 Output Total 6 Balance 1594 1627 Weight 111.5 kg 112.9 kg General appearance: PRESENT: no acute distress Musculoskeletal exam: PRESENT: other - Dressing removed right foot; no significant swelling; open areas to predominantly closed wound with some dried blood. Foot and wound washed with chlorhexidine. All redundant suture tags clipped. Foot is warm, with a bounding dorsalis pedis pulse. Range of motion very good. Results Laboratory Results: 08/17/17 05:34 08/17/17 05:34 08/14/17 11:25 Toe - Right First Gram Stain - Final 08/14/17 11:25 Toe - Right First Wound Culture - Final Enterococcus Avium Impressions: Lower Extremity MRI 08/13/17 00:00 IMPRESSION: Extensive destruction of the great toe as above. Consistent with osteomyelitis involving the great toe phalanges. Normal marrow signal in the metatarsal. No drainable abscess. Toe X-Ray 08/13/17 00:00 IMPRESSION: Destructive process centered at the great toe IP joint, presumably osteomyelitis. Assessment & Plan - Diagnosis (1) Osteomyelitis of toe of right foot Is this a current diagnosis for this admission?: Yes Plan: Patient is now postoperative day 5 status post right great toe and ray amputation, with primary closure, doing well, no complications, undergoing dressing changes, limited weightbearing. Plan: 1. Dressing changes reviewed with patient and staff 2. I have ordered a surgical sandal for him; alerted patient to second toe may be in harm's way as it protrudes way beyond his third toe, may be subject to trauma. 3. Await final cultures from bone cement; at this point, low suspicion for need for long-term IV antibiotics. 4. Discharge instructions from a surgical perspective provided to patient; patient can follow-up with [place] [facility], [facility], in 1 week. Patient instructed to keep the leg elevated at all times while stationary.
[2017-08-19] MEDS: MULTIVITAMIN TABLET PO SCH (10:00)
[2017-08-19] MEDS: OXYCODONE HCL SR 10 MG TABLET PO SCH (10:01)
[2017-08-19] MEDS: LOSARTAN POTASSIUM 50 MG TABLET PO SCH (10:01)
[2017-08-19] MEDS: FAMOTIDINE 20 MG TABLET PO SCH (10:01)
[2017-08-19] MEDS: POLYETHYLENE GLYCOL 3350 POWDER 17 GM/1 PACKET PO SCH (10:04)
[2017-08-19] MEDS ORDERED: INFLUENZA ADLT QUAD (36MOS+) 2017-18 VAC 0.5 ML SYR IM PRN (10:06)
[2017-08-19 12:47] VITALS: BP 126/68
--- NOTE | 2017-08-19 17:37 | PDOC DISCHARGE SUMMARY ---
General - Admit/Disc Date/PCP Admission Date/Primary Care Provider: 08/13/17 11:36 CAL DAYDAYLAUREN RAMACHANDRAN Discharge Date: 08/19/17 - Discharge Diagnosis (1) Osteomyelitis of toe of right foot Is this a current diagnosis for this admission?: Yes (2) Insulin dependent diabetes mellitus Is this a current diagnosis for this admission?: Yes (3) Hypertension Is this a current diagnosis for this admission?: Yes (4) Colon cancer metastasized to liver Is this a current diagnosis for this admission?: Yes (5) Diabetic foot ulcer Is this a current diagnosis for this admission?: Yes - Additional Information Resuscitation Status: Full Code Discharge Diet: Diabetic Discharge Activity: Activity As Tolerated, Slowly Increase Activity Prescriptions: Amox Tr/Potassium Clavulanate [Augmentin 875-125 mg Tablet] 1 tab PO BID #20 tablet Insulin Aspart [Novolog Flexpen] See Protocol SQ ACHS #1 insuln.pen Home Medications: Alprazolam [Xanax 0.25 mg Tablet] 0.25 mg PO Q8 08/14/17 Azelastine HCl 2 spray NASL BID 08/14/17 Baclofen [Baclofen 10 mg Tablet] 10 mg PO BIDP PRN 08/14/17 Eszopiclone [Lunesta] 3 mg PO QHS 08/14/17 Ferrous Sulfate [Feosol 325 mg Tablet] 325 mg PO Q2D 08/14/17 Fluoxetine HCl [Prozac 20 mg Capsule] 40 mg PO QAM 08/14/17 Gabapentin [Neurontin] 800 mg PO Q8 08/14/17 Losartan Potassium [Cozaar 50 mg Tablet] 50 mg PO DAILY 08/14/17 Multivitamin [Tab-A-Salma (Multiple Vitamin) Tablet] 1 tab PO DAILY 08/14/17 Omeprazole 20 mg PO ACBRKFST 08/14/17 Oxycodone HCl [Oxycontin] 30 mg PO Q12 08/14/17 Polyethylene Glycol 3350 [Miralax Powder 17 gm/Packet] 17 gm PO DAILY 08/14/17 Rivaroxaban [Xarelto] 20 mg PO WSUPPER 08/14/17 Acetaminophen [Tylenol 325 mg Tablet] 650 mg PO Q4HP PRN tablet 08/19/17 Amox Tr/Potassium Clavulanate [Augmentin 875-125 mg Tablet] 1 tab PO BID #20 tablet 08/19/17 Insulin Aspart [Novolog Flexpen] See Protocol SQ ACHS #1 insuln.pen 08/19/17 Insulin Glargine,Hum.rec.anlog [Toumarycruzo Solostar] 4 unit SQ DAILY #0 08/19/17 History of Present Illness History of Present Illness: NELY NEW is a 52 year old male with a past medical history of colon cancer with metastasis to the liver; last chemotherapy treatment approximately 2 weeks ago, insulin-dependent diabetes mellitus, and hypertension who was received as a direct admit from Dr. Cole's office for a complaint of right great toe pain with a chronic wound and concern for osteomyelitis. The patient states that the current wound has been present for 6-8 weeks. He states that Dr. Cole recently did an outpatient debridement of the toe and at his follow- up appointment was told that he was concerned that the toe was becoming gangrenous and may require amputation. The patient reports serous drainage, denies purulent drainage, foul smell, edema, or erythema of the surrounding skin. Unfortunately, outpatient records are not available for review. The patient will be admitted to the floor for workup of chronic diabetic foot wound with possible osteomyelitis. At the time of admission and dictation, the patient's home medications are unavailable. The patient is able to identify his home regiment; pharmacy staff have been notified for assistance. Hospital Course Hospital Course: The patient was a direct admit from Dr. Cole's office for osteomyelitis of the right great toe. Foot x-ray and follow-up MRI imaging did confirm osteomyelitis with bone destruction to the right great toe. He received Ancef pre-operatively and underwent an amputation by Dr. Doshi on 08/15/17. He was placed on Zosyn postoperatively. Cultures of the bone revealed enterococcus avium with strep synergy resistance. The patient also met with our presetter operator while admitted. We found that he needed a much smaller dose of insulin than he had been prescribed as an outpatient. The patient was recommended to continue to long term 4 units nightly with Humalog for sliding scale coverage before meals at bedtime. He was provided prescriptions for both and recommended to follow-up with his primary care provider within 1-[address] Harris, the patient's oncologist, followed the patient's admission and will see the patient in the office later this week. On the morning of discharge, the patient was in stable addition and pain-free. The patient was provided a prescription for Augmentin and was instructed on wound care. He is to follow-up with [facility] in 2 weeks. Physical Exam Vital Signs: Temp Pulse Resp BP Pulse Ox 97.4 F 61 16 121/81 95 08/19/17 07:22 08/19/17 07:22 08/19/17 07:22 08/19/17 07:22 08/19/17 07:22 Intake & Output 08/18/17 08/19/17 08/20/17 06:59 06:59 06:59 Intake Total 1594 1633 Output Total 6 Balance 1594 1627 Weight 111.5 kg 112.9 kg General appearance: PRESENT: no acute distress, well-developed, well-nourished, other - Overweight Head exam: PRESENT: atraumatic, normocephalic Eye exam: PRESENT: conjunctiva pink, EOMI, PERRLA. ABSENT: scleral icterus Ear exam: PRESENT: normal external ear exam Mouth exam: PRESENT: moist, tongue midline Neck exam: ABSENT: carotid bruit, JVD, lymphadenopathy, thyromegaly Respiratory exam: PRESENT: clear to auscultation rona. ABSENT: rales, rhonchi, wheezes Cardiovascular exam: PRESENT: RRR. ABSENT: diastolic murmur, rubs, systolic murmur Pulses: PRESENT: normal dorsalis pedis pul Vascular exam: PRESENT: normal capillary refill GI/Abdominal exam: PRESENT: normal bowel sounds, soft. ABSENT: distended, guarding, mass, organolmegaly, rebound, tenderness Rectal exam: PRESENT: deferred Extremities exam: PRESENT: full ROM, other - s/p right great toe amputation; surgical site not visualized as a clean dressing is in place preparing for discharge.. ABSENT: calf tenderness, clubbing, pedal edema Neurological exam: PRESENT: alert, awake, oriented to person, oriented to place , oriented to time, oriented to situation, CN II-XII grossly intact. ABSENT: motor sensory deficit Psychiatric exam: PRESENT: appropriate affect, normal mood. ABSENT: homicidal ideation, suicidal ideation Skin exam: PRESENT: dry, intact, warm. ABSENT: cyanosis, rash Results Laboratory Results: 08/17/17 05:34 08/17/17 05:34 08/14/17 11:25 Toe - Right First Gram Stain - Final 08/14/17 11:25 Toe - Right First Wound Culture - Final Enterococcus Avium Impressions: Lower Extremity MRI 08/13/17 00:00 IMPRESSION: Extensive destruction of the great toe as above. Consistent with osteomyelitis involving the great toe phalanges. Normal marrow signal in the metatarsal. No drainable abscess. Toe X-Ray 08/13/17 00:00 IMPRESSION: Destructive process centered at the great toe IP joint, presumably osteomyelitis. Qualifiers PATEINT BEING DISCHARGED WITH ANY OF THE FOLLOWING DIAGNOSIS?: No
== END 2017-08-19 13:10 | disposition home or self-care (01) | DRG 240 ==
LOC: 4S 11:36
PROVIDERS: ADMIT Emergency Medicine; ATTEND Emergency Medicine
PROC: 0Y6M0Z4 Detachment at Right Foot, Complete 1st Ray, Open Approach (ICD-10-PCS; principal; 2017-08-14 11:15)
PROC: 3E0234Z Introduction of Serum, Toxoid and Vaccine into Muscle, Percutaneous Approach (ICD-10-PCS; 2017-08-19)
DX: E10.52 Type 1 diabetes mellitus with diabetic peripheral angiopathy with gangrene (principal); I96 Gangrene, not elsewhere classified; C18.9 Malignant neoplasm of colon, unspecified; C78.7 Secondary malignant neoplasm of liver and intrahepatic bile duct; M86.171 Other acute osteomyelitis, right ankle and foot; E10.69 Type 1 diabetes mellitus with other specified complication; I10 Essential (primary) hypertension; F41.1 Generalized anxiety disorder; L97.519 Non-pressure chronic ulcer of other part of right foot with unspecified severity; Z79.4 Long term (current) use of insulin; Z23 Encounter for immunization; Z79.899 Other long term (current) drug therapy; Z16.39 Resistance to other specified antimicrobial drug; B95.2 Enterococcus as the cause of diseases classified elsewhere; R63.4 Abnormal weight loss; Z68.31 Body mass index [BMI] 31.0-31.9, adult; Z90.49 Acquired absence of other specified parts of digestive tract
CPT/HCPCS: 01480; 36415; 80048; 80053; 82962; 83036; 85025; 85027; 87070; 87075; 87077; 87186; 88304; 88311; 90686; J1644; J1815; J2250; J2543; J2704; J3010; J3490; J7120

== ENCOUNTER → 2017-09-05 | Outpatient (CLI) | payer OTHER ==
--- NOTE | 2017-09-05 13:18 | RADIOLOGY REPORT (SQ) ---
EXAM DESCRIPTION: CT CHEST WITH; CT ABD/PELVIS WITH IV ORAL COMPLETED DATE/TIME: 09/05/2017 9:20 am REASON FOR STUDY: C18.7 MALIGNANT NEOPLASM OF SIGMOID COLON; C18.7 MALIGNANT NEOPLASM C18.7 MALIGNA NT NEOPLASM OF SIGMOID COLON COMPARISON: No prior imaging available CONTRAST TYPE AND DOSE: contrast/concentration: Isovue 370.00 mg/ml; Total Contrast Delivered: 100.0 ml; Total Saline Delivered: 72.0 ml RENAL FUNCTION: creatinine 0.72 TECHNIQUE: CT scan of the chest performed using helical scanning technique with dynamic intravenous contrast injection. Images reviewed with lung, soft tissue and bone windows. Reconstructed coronal a nd sagittal MPR images reviewed. All images stored on PACS. CT scan of the abdomen and pelvis performed with intravenous and with oral contrastusing helical scan raheem technique with dynamic intravenous contrast injection. Images reviewed with lung, soft tissue a nd bone windows. Reconstructed coronal and sagittal MPR images reviewed. Delayed images for evaluat ion of the urinary system also acquired and evaluated. All images stored on PACS. All CT scanners at this facility use dose modulation, iterative reconstruction, and/or weight based d osing when appropriate to reduce radiation dose to as low as reasonably achievable (ALARA). [facility]: Dose Right [facility]: CareDose [facility]: Dose Right [facility]: Teradose 4D [facility]: [employer] RADIATION DOSE: CT Rad equipment meets quality standard of care and radiation dose reduction techniq ues were employed. CTDIvol: 20.8 - 21.2 mGy. DLP: 3331 mGy-cm. . LIMITATIONS: None. FINDINGS: CHEST: LUNGS AND PLEURA: No opacities, nodules, masses. No pneumothorax. No effusions. HILAR AND MEDIASTINAL STRUCTURES: No identified masses or abnormal nodes. HEART AND VASCULAR STRUCTURES: No aneurysm or dissection. No central pulmonary emboli. No pericardi al effusion. HARDWARE: Right and left subclavian permanent central lines are present THYROID AND OTHER SOFT TISSUES: No masses. No adenopathy. BONES: No significant finding. OTHER: No other significant finding. ABDOMEN AND PELVIS: LIVER: On axial image 21 through 23, and coronal image 36, a subcentimeter nodule is present in the s ub- diaphragmatic surface left lobe liver of unclear etiology. Comparison with any old or outside fi lms would be useful. SPLEEN: Normal size. No focal lesions. PANCREAS: No masses. No significant calcifications. No adjacent inflammation or peripancreatic fluid collections. Pancreatic duct not dilated. GALLBLADDER: No identified stones by CT criteria. No inflammatory changes to suggest cholecystitis. ADRENAL GLANDS: No significant masses or asymmetry. RIGHT KIDNEY AND URETER: No solid masses. No significant calcification. No hydronephrosis or hydroure ter. LEFT KIDNEY AND URETER: No solid masses. No significant calcification. No hydronephrosis or hydrouret er. AORTA AND VESSELS: No aneurysm. No dissection. Renal arteries, SMA, celiac without stenosis. RETROPERITONEUM: No retroperitoneal adenopathy, hemorrhage or masses. BOWEL AND PERITONEAL CAVITY: No masses or inflammatory changes. No free fluid or peritoneal masses. Patient drank oral contrast. No CT evidence of bowel obstruction. The patient is post partial sigmo id colectomy with a row of anastomotic viraj on axial image 75. APPENDIX: Normal. ABDOMINAL WALL: No masses. No hernias. PELVIS: Prostate indents the bladder base. No pelvic masses or adenopathy. No free fluid. BONES: No significant or acute findings. OTHER: No other significant finding. IMPRESSION: Prior sigmoid colectomy. Subcentimeter density in the liver left lobe. Comparison with old outside films recommended CT chest unremarkable aside from right and left subclavian permanent central lines TECHNICAL DOCUMENTATION: JOB ID: [id number] Quality ID # [id number]: Final reports with documentation of one or more dose reduction techniques (e.g., Au tomated exposure control, adjustment of the mA and/or kV according to patient size, use of iterative reconstruction technique) 2010 [employer]- All Rights Reserved
== END ==
LOC: RAD 08:47
PROVIDERS: ATTEND Internal Medicine
DX: C18.7 Malignant neoplasm of sigmoid colon (principal)
CPT/HCPCS: 71260; 74177

== ENCOUNTER → 2017-11-28 | Outpatient (CLI) | payer OTHER ==
--- NOTE | 2017-11-28 09:25 | RADIOLOGY REPORT (SQ) ---
EXAM DESCRIPTION: CT ABD/PELVIS WITH IV ORAL; CT CHEST WITH COMPLETED DATE/TIME: 11/28/2017 8:18 am REASON FOR STUDY: COLON CA C18.7 MALIGNANT NEOPLASM OF SIGMOID COLON CONTRAST TYPE AND DOSE: contrast/concentration: Isovue 370.00 mg/ml; Total Contrast Delivered: 100.0 ml; Total Saline Delivered: 72.0 ml RENAL FUNCTION: Creatinine: 0.7. COMPARISON: None. TECHNIQUE: CT scan of the chest performed using helical scanning technique with dynamic intravenous contrast injection. Images reviewed with lung, soft tissue and bone windows. Reconstructed coronal a nd sagittal MPR images reviewed. All images stored on PACS. All CT scanners at this facility use dose modulation, iterative reconstruction, and/or weight based d osing when appropriate to reduce radiation dose to as low as reasonably achievable (ALARA). [facility]: Dose Right [facility]: CareDose [facility]: Dose Right [facility]: Teradose 4D [facility]: [email or web address] RADIATION DOSE: CT Rad equipment meets quality standard of care and radiation dose reduction techniq ues were employed. CTDIvol: 12.6 - 13.3 mGy. DLP: 1983 mGy-cm. . LIMITATIONS: None. FINDINGS: AXILLAE: No adenopathy. CHEST WALL: No masses. No subcutaneous air. LUNGS: Dependent atelectasis in left lung base. Otherwise, no abnormality seen. THYROID: No abnormality seen. HILAR AND MEDIASTINAL STRUCTURES: No mediastinal or hilar adenopathy. AORTA AND GREAT VESSELS: No aneurysm. No dissection. PULMONARY ARTERIES: No identified pulmonary emboli. Study not optimized for the pulmonary arteries. HEART: No pericardial effusion. HARDWARE AND LIFELINES: None. BONES: No significant finding. OTHER: Left trans venous Port-A-Cath tip overlying the left subclavian vein. Right trans venous port extends to SVC. IMPRESSION: NORMAL CT OF THE CHEST WITH IV CONTRAST. COMPARISON: None. RADIATION DOSE: CT Rad equipment meets quality standard of care and radiation dose reduction techniq ues were employed. CTDIvol: 12.6 - 13.3 mGy. DLP: 1983 mGy-cm. mGy. TECHNIQUE: CT scan of the abdomen and pelvis performed with intravenous and oral contrast using otoniel deandre scanning technique with dynamic intravenous contrast injection. Images reviewed with lung, soft tissue and bone windows. Reconstructed coronal and sagittal MPR images reviewed. Delayed images for evaluation of the urinary system also acquired and evaluated. All images stored on PACS. All CT scanners at this facility use dose modulation, iterative reconstruction, and/or weight based d osing when appropriate to reduce radiation dose to as low as reasonably achievable (ALARA). [facility]: Dose Right [facility]: [employer] [facility]: Dose Right [facility]: Teradose 4D [facility]: [email or web address] FINDINGS: LIVER: 6 mm rounded area of decreased attenuation right lobe of liver (image number [id number] sequence 8 and image 21/93series 605 sagittal scans) SPLEEN: No abnormality seen. PANCREAS: No abnormality seen. GALLBLADDER: No abnormality seen. ADRENAL GLANDS: No abnormality seen. RIGHT KIDNEY AND URETER: Small rounded area decreased attenuation medial cortex lower pole right kidn ey measuring 5 mm which could represent cortical cyst. LEFT KIDNEY AND URETER: Small rounded area decreased attenuation medial cortex mid left kidney measur ing 4 mm which could represent cortical cysts. AORTA AND VESSELS: Atherosclerotic change of the infrarenal abdominal aorta. Renal arteries, SMA, ce liac without stenosis. RETROPERITONEUM: Small nonenlarged para-aortic nodes. Small nonenlarged bilateral external iliac nod es and inguinal nodes. LARGE AND SMALL BOWEL: There is postsurgical change of the rectosigmoid colon. The descending and re ctosigmoid colon are decompressed. Colonic diverticulosis noted. APPENDIX: Nonvisualized. ABDOMINAL WALL: No hernia or masses. PERITONEAL CAVITY: No free air. No free fluid. No peritoneal implants or masses. PELVIS: Urinary bladder: Thick-walled and mildly distended. Mucosal abnormality or muscular hypertr ophy are considerations. Prostate seminal vesicles: Nodular enlarged prostate. PSA correlation re commended BONES: Minimal lumbar spondylosis. . IMPRESSION: 1. Focal rounded area of decreased attenuation noted within right lobe of the liver too small to characterize. Follow-up indicated. 2. Small cortical cysts of the kidneys. 3 . Postsur gical changes of rectosigmoid colon. 4. . Enlarged nodular prostate. Follow-up with PSA correlati on indicated. Thick-walled urinary bladder with muscular hypertrophy or mucosal abnormality not excl uded. TECHNICAL DOCUMENTATION: JOB ID: [id number] SC-[id number] Quality ID # [id number]: Final reports with documentation of one or more dose reduction techniques (e.g., Au tomated exposure control, adjustment of the mA and/or kV according to patient size, use of iterative reconstruction technique) 2010 [employer]- All Rights Reserved Reading location - IP/workstation name: [email or web address]
== END ==
LOC: RAD 07:47
PROVIDERS: ATTEND Internal Medicine
DX: C18.7 Malignant neoplasm of sigmoid colon (principal)
CPT/HCPCS: 71260; 74177

== ENCOUNTER → 2017-12-22 | Outpatient (CLI) | payer OTHER ==
--- NOTE | 2017-12-24 08:03 | RADIOLOGY REPORT (SQ) ---
EXAM DESCRIPTION: PET CT SKULL/THIGH COMPLETED DATE/TIME: 12/22/2017 9:05 pm REASON FOR STUDY: COLON CANCER C18.7 MALIGNANT NEOPLASM OF SIGMOID COLON COMPARISON: CT chest abdomen and pelvis 11/28/2017, 09/05/2017 RADIONUCLIDE AND DOSE: 12 mCi F18 FDG The route of agent administration: Intravenous FASTING BLOOD SUGAR: 159 mg/dl CONTRAST TYPE AND DOSE: No CT contrast given. TECHNIQUE: Blood glucose level was verified. Above dose of FDG was injected intravenously. 2-D seg mented attenuation correction images were obtained from the base of the skull to the midthighs. Nonc ontrast CT images were obtained for attenuation correction and fusion with emission images. CT image s were performed without oral or intravenous contrast and are not sensitive for parenchymal lesions. A series of overlapping emission PET images were obtained. Images reviewed and manipulated at [facility] by the radiologist. Images stored on PACS. LIMITATIONS: None. FINDINGS: HEAD AND NECK: No areas of abnormal metabolic activity in the soft tissues of the head and neck. CHEST: No areas of abnormal metabolic activity in the chest. ABDOMEN AND PELVIS: No areas of abnormal metabolic activity in the abdomen or pelvis. Expected physi ologic activity is present in the genitourinary system and bowel. Specifically, no abnormal uptake i s seen in the liver segment 8 in the area of 6 to 7 mm nodule previously described on CT 11/28/2017. PROXIMAL LOWER EXTREMITIES: No areas of abnormal metabolic activity in the soft tissues of the lower extremities. BONES: No abnormal metabolic activity in the visualized skeleton. ADDITIONAL CT FINDINGS: Sigmoid colectomy. Right jugular central line tip superior vena cava. There is a left permanent central line with minimal peripheral increased uptake in the adjacent soft tissu es with SUV of 2.0. Catheter appears transected or broken as it crosses between the left clavicle an d 1st rib OTHER: Liver background activity 2.1 SUV. Blood pool background activity 1.2 SUV. IMPRESSION: Post sigmoid colectomy. No PET-CT evidence of local recurrence or distant metastatic di sease. Specifically, no hypermetabolic liver lesions are seen. TECHNICAL DOCUMENTATION: JOB ID: [id number] [employer]- All Rights Reserved Reading location - IP/workstation name: [email or web address]
== END ==
LOC: RAD 18:24
PROVIDERS: ATTEND Internal Medicine
DX: C18.7 Malignant neoplasm of sigmoid colon (principal)
CPT/HCPCS: 78815; A9552

== ENCOUNTER 2018-03-31 11:40 | Emergency (ER) | payer OTHER ==
[2018-03-31 11:58] VITALS: BP 126/91
[2018-03-31] MEDS ORDERED: NORMAL SALINE 1000 ML 1,000 ML IV PRN ×2 (12:07→14:01)
--- NOTE | 2018-03-31 12:10 | ER Document Report ---
ED Medical Screen (RME) - General Chief Complaint: Wound Infection Stated Complaint: WOUND DRAINAGE Time Seen by Provider: 03/31/18 12:07 Notes: 52 years old male with a stage IV colon cancer with metastases to the lungs, right lower foot osteomyelitis, uncontrolled diabetes presents today with elevated blood sugar general malaise confusion chills on and off. Going on for the last few days. TRAVEL OUTSIDE OF THE [place] IN LAST 30 DAYS: No - Related Data Allergies/Adverse Reactions: No Known Allergies Allergy (Verified 03/31/18 11:48) Past Medical History - Social History Chew tobacco use (# tins/day): No Frequency of alcohol use: None Drug Abuse: None - Past Medical History Cardiac Medical History: Reports: Hx Hypertension Endocrine Medical History: Reports: Hx Diabetes Mellitus Type 1 Renal/ Medical History: Denies: Hx Peritoneal Dialysis Malignancy Medical History: Reports Hx Colorectal Cancer, Reports Hx Liver Cancer Past Surgical History: Reports: Hx Abdominal Surgery - colon, Other - Partial colectomy - Immunizations History of Influenza Vaccine for 04/2017 - 09/2017 Season: No Physical Exam - Vital signs Vitals: Pulse BP Pulse Ox 104 H 126/91 H 95 03/31/18 11:52 03/31/18 11:52 03/31/18 11:52 Course - Vital Signs Vital signs: Temp Pulse Resp BP Pulse Ox 104 H 28 H 126/91 H 95 03/31/18 11:52 03/31/18 11:58 03/31/18 11:52 03/31/18 11:52 Doctor's Discharge - Discharge Referrals: LIANE WILKINS MD [Primary Care Provider] - Follow up as needed
[2018-03-31 13:39] LABS: ABSOLUTE EOSINOPHILS # (AUTO) 0.1 10^3/uL (0.0-0.6); ABSOLUTE LYMPHOCYTES (AUTO) 1.7 10^3/uL (0.5-4.7); ABSOLUTE MONOCYTES (AUTO) 0.7 10^3/uL (0.1-1.4); ABSOLUTE NEUT (AUTO) 6.1 10^3/uL (1.7-8.2); BASOPHILS % (AUTO) 0.4 % (0-2); EOSINOPHILS % (AUTO) 0.6 % (0-6); HEMATOCRIT 41.3 % (37.9-51.0); HEMOGLOBIN 14.4 g/dL (13.5-17.0); LYMPHOCYTES % (AUTO) 20.1 % (13-45); MEAN CORPUSCULAR HEMOGLOBIN 30.4 pg (27.0-33.4); MEAN CORPUSCULAR HGB CONC 34.8 g/dL (32.0-36.0); MEAN CORPUSCULAR VOLUME 88 fl (80-97); MONOCYTES % (AUTO) 8.5 % (3-13); PLATELET COUNT 190 10^3/uL (150-450); RED BLOOD COUNT 4.72 10^6/uL (4.35-5.55); RED CELL DISTRIBUTION WIDTH 13.3 % (11.5-14.0); SEGMENTED NEUTROPHILS % (AUTO) 70.4 % (42-78); TOTAL CELLS COUNTED % (AUTO) 100 %; WHITE BLOOD COUNT 8.6 10^3/uL (4.0-10.5)
[2018-03-31 13:45] LABS: INTERNATIONAL RATION (INR) 1.06; PROTHROMBIN TIME 14.3 SEC (11.4-15.4)
[2018-03-31 13:53] LABS: VENOUS BLOOD BASE EXCESS 3.6 mmol/L; VENOUS BLOOD HCO3 27.8 mmol/L (20-32); VENOUS BLOOD PCO2 40.3 mmHg (35-63); VENOUS BLOOD PH 7.46 (7.30-7.42)
[2018-03-31] MEDS ORDERED: PIPERACILLIN SODIUM/TAZOBACTAM 4.5 GM in NORMAL SALINE 100 ML IV ONE (14:00)
[2018-03-31 14:04] LABS: ALANINE AMINOTRANSFERASE 26 U/L (21-72); ALBUMIN 3.8 g/dL (3.5-5.0); ALKALINE PHOSPHATASE 134 U/L (38-126); ANION GAP 12 (5-19); ASPARTATE AMINO TRANSFERASE 28 U/L (17-59); BILIRUBIN,DIRECT 0.6 mg/dL (0.0-0.4); BILIRUBIN,TOTAL 1.2 mg/dL (0.2-1.3); BLOOD UREA NITROGEN 14 mg/dL (7-20); CALCIUM 9.2 mg/dL (8.4-10.2); CARBON DIOXIDE 27 mmol/L (22-30); CHLORIDE 97 mmol/L (98-107); GLUCOSE 242 mg/dL (75-110); POTASSIUM 3.9 mmol/L (3.6-5.0); SODIUM 136.3 mmol/L (137-145); TOTAL PROTEIN 7.7 g/dL (6.3-8.2)
--- NOTE | 2018-03-31 14:29 | RADIOLOGY REPORT (SQ) ---
EXAM DESCRIPTION: CT HEAD WITHOUT COMPLETED DATE/TIME: 03/31/2018 2:16 pm REASON FOR STUDY: ams COMPARISON: None none TECHNIQUE: Axial images acquired through the brain without intravenous contrast. Images reviewed wi th bone, brain and subdural windows. Additional sagittal and coronal reconstructions were generated. Images stored on PACS. All CT scanners at this facility use dose modulation, iterative reconstruction, and/or weight based d osing when appropriate to reduce radiation dose to as low as reasonably achievable (ALARA). [facility]: Dose Right [facility]: CareDose [facility]: Dose Right [facility]: Teradose 4D [facility]: [employer] RADIATION DOSE: CT Rad equipment meets quality standard of care and radiation dose reduction techniq ues were employed. CTDIvol: 53.2 mGy. DLP: 1017 mGy-cm. mGy. LIMITATIONS: None. FINDINGS: VENTRICLES: Normal size and contour. CEREBRUM: No masses. No hemorrhage. No midline shift. No evidence for acute infarction. Normal gra y/white matter differentiation. No areas of low density in the white matter. CEREBELLUM: No masses. No hemorrhage. No alteration of density. No evidence for acute infarction. EXTRAAXIAL SPACES: No fluid collections. No masses. ORBITS AND GLOBE: No intra- or extraconal masses. Normal contour of globe without masses. CALVARIUM: No fracture. PARANASAL SINUSES: No fluid or mucosal thickening. SOFT TISSUES: No mass or hematoma. OTHER: No other significant finding. IMPRESSION: NORMAL BRAIN CT WITHOUT CONTRAST. EVIDENCE OF ACUTE STROKE: NO. COMMENT: Quality ID # [id number]: Final reports with documentation of one or more dose reduction techniques (e.g., Automated exposure control, adjustment of the mA and/or kV according to patient size, use of iterative reconstruction technique) TECHNICAL DOCUMENTATION: JOB ID: [id number] [employer]- All Rights Reserved Reading location - IP/workstation name: [email or web address]
[2018-03-31] MEDS: PIPERACILLIN SODIUM/TAZOBACTAM 4.5 GM in NORMAL SALINE 100 ML IV SCH ×2 (14:35→18:56)
--- NOTE | 2018-03-31 15:10 | RADIOLOGY REPORT (SQ) ---
EXAM DESCRIPTION: FOOT RIGHT COMPLETE COMPLETED DATE/TIME: 03/31/2018 2:36 pm REASON FOR STUDY: ams right foot wound osteo? COMPARISON: 07/15/2017 NUMBER OF VIEWS: Three views. TECHNIQUE: AP, lateral and oblique radiographic images acquired of the right foot. LIMITATIONS: None. FINDINGS: MINERALIZATION: Osteopenia. BONES: Interval partial amputation of the 1st ray. No focal erosions. JOINTS: No effusions. SOFT TISSUES: No soft tissue swelling. No foreign body. OTHER: No other significant finding. IMPRESSION: Interval partial amputation of the 1st ray. No evidence for osteomyelitis. TECHNICAL DOCUMENTATION: JOB ID: [id number] [employer]- All Rights Reserved Reading location - IP/workstation name: [email or web address]
--- NOTE | 2018-03-31 15:11 | RADIOLOGY REPORT (SQ) ---
EXAM DESCRIPTION: CHEST 2 VIEWS COMPLETED DATE/TIME: 03/31/2018 2:36 pm REASON FOR STUDY: ams cough COMPARISON: None. EXAM PARAMETERS: NUMBER OF VIEWS: two views TECHNIQUE: Digital Frontal and Lateral radiographic views of the chest acquired. RADIATION DOSE: NA LIMITATIONS: none FINDINGS: LUNGS AND PLEURA: No opacities, masses or pneumothorax. No pleural effusion. MEDIASTINUM AND HILAR STRUCTURES: No masses or contour abnormalities. HEART AND VASCULAR STRUCTURES: Heart normal size. No evidence for failure. BONES: No acute findings. HARDWARE: There are 2 venous access catheters. Tip of the right IJ catheter is in the superior vena cava. Tip of the left subclavian catheter is in the mid left subclavian vein. OTHER: No other significant finding. IMPRESSION: No acute infiltrates. There are 2 venous access catheters as described. TECHNICAL DOCUMENTATION: JOB ID: [id number] [employer]- All Rights Reserved Reading location - IP/workstation name: [email or web address]
[2018-03-31 18:50] LABS: APPEARANCE,URINE CLEAR; BILIRUBIN,URINE NEGATIVE (NEGATIVE); COLOR,URINE YELLOW; GLUCOSE, URINE 150 mg/dL (NEGATIVE); KETONES,URINE 25 mg/dL (NEGATIVE); LEUKOCYTE ESTERASE,URINE NEGATIVE (NEGATIVE); NITRITE,URINE NEGATIVE (NEGATIVE); PROTEIN,URINE 30 mg/dL (NEGATIVE); URINE SPECIFIC GRAVITY 1.023
--- NOTE | 2018-03-31 19:01 | ER Document Report ---
ED General - General Chief Complaint: Wound Infection Stated Complaint: WOUND DRAINAGE Time Seen by Provider: 03/31/18 12:07 TRAVEL OUTSIDE OF THE [place] IN LAST 30 DAYS: No - HPI Patient complains to provider of: Right foot wound feeling unwell Notes: Patient coming in for evaluation of right foot wound concerning for osteomyelitis along with feeling unwell. Patient states family was concerned about possible altered mental status however patient is a no 3 states he is having difficult time answering some questions with long pauses difficulty concentrating. Patient has had a history of cancer colon cancer with metastatic disease to his bones. Patient states last received chemotherapy approximately 2 weeks ago and is followed by Dr. Stella martini. Patient otherwise was to be no obvious distress upon my evaluation denies any recent antibiotics denies any fever states chills no nausea vomiting or diarrhea. Patient states he has not been eating well - Related Data Allergies/Adverse Reactions: No Known Allergies Allergy (Verified 03/31/18 11:48) Past Medical History - Social History Smoking Status: Never Smoker Chew tobacco use (# tins/day): No Frequency of alcohol use: None Drug Abuse: None Family History: Other - Unknown; patient reports that he is adopted Patient has suicidal ideation: No Patient has homicidal ideation: No - Past Medical History Cardiac Medical History: Reports: Hx Hypertension Endocrine Medical History: Reports: Hx Diabetes Mellitus Type 1 Renal/ Medical History: Denies: Hx Peritoneal Dialysis Malignancy Medical History: Reports Hx Colorectal Cancer, Reports Hx Liver Cancer Past Surgical History: Reports: Hx Abdominal Surgery - colon, Other - Partial colectomy Review of Systems - Review of Systems Constitutional: Other - Feeling unwell EENT: No symptoms reported Cardiovascular: No symptoms reported Respiratory: No symptoms reported Gastrointestinal: No symptoms reported Genitourinary: No symptoms reported Male Genitourinary: No symptoms reported Musculoskeletal: Other - Right foot wound Skin: No symptoms reported Hematologic/Lymphatic: No symptoms reported Neurological/Psychological: No symptoms reported -: Yes All other systems reviewed and negative Physical Exam - Vital signs Vitals: Pulse BP Pulse Ox 104 H 126/91 H 95 03/31/18 11:52 03/31/18 11:52 03/31/18 11:52 Interpretation: Normal - General General appearance: Appears well, Alert - HEENT Head: Normocephalic, Atraumatic Eyes: Normal Pupils: PERRL - Respiratory Respiratory status: No respiratory distress Chest status: Nontender, Other - Bilateral upper chest ports no signs of infection Breath sounds: Normal Chest palpation: Normal - Cardiovascular Rhythm: Regular Heart sounds: Normal auscultation Murmur: No - Abdominal Inspection: Normal Distension: No distension Bowel sounds: Normal Tenderness: Nontender Organomegaly: No organomegaly - Back Back: Normal, Nontender - Extremities General upper extremity: Normal inspection, Nontender, Normal color, Normal ROM , Normal temperature General lower extremity: Nontender, Normal color, Normal ROM, Normal temperature , Normal weight bearing. No: Normal inspection - Application of the greater toe on the right at the base of the amputation site there is a small area of erythema approximate size of a elena painful to touch however unable to express any purulent material, Ritesh's sign - Neurological Neuro grossly intact: Yes Cognition: Normal Orientation: AAOx4 Melody Coma Scale Eye Opening: Spontaneous Melody Coma Scale Verbal: Oriented Melody Coma Scale Motor: Obeys Commands Melody Coma Scale Total: 15 Speech: Normal Motor strength normal: LUE, RUE, LLE, RLE Sensory: Normal - Psychological Associated symptoms: Normal affect, Normal mood - Skin Skin Temperature: Warm Skin Moisture: Dry Skin Color: Normal Course - Re-evaluation Re-evalutation: 03/31/18 20:45 Patient with no white count no fever while here in the ER normal vital signs negative CT scan negative chest x-ray negative foot x-ray along with a negative work up for infection or electrolyte abnormality. Some slight dehydration seems patient's specific gravity was elevated. The discussed case with the covering oncologist Dr. Alvarado does not think this is chemotherapy related. We will start the patient on Keflex for prophylactic wound infection treatment patient is follow-up with his oncologist patient discharged home - Vital Signs Vital signs: Temp Pulse Resp BP Pulse Ox 97.9 F 104 H 28 H 126/91 H 95 03/31/18 13:41 03/31/18 11:52 03/31/18 11:58 03/31/18 11:52 03/31/18 11:52 - Laboratory Result Diagrams: 03/31/18 13:10 03/31/18 13:10 Laboratory results interpreted by me: 03/31/18 03/31/18 03/31/18 13:10 13:10 17:50 VBG pH 7.46 H Sodium 136.3 L Chloride 97 L Glucose 242 H Direct Bilirubin 0.6 H Alkaline Phosphatase 134 H Urine Protein 30 H Urine Glucose (UA) 150 H Urine Ketones 25 H Urine Urobilinogen 2.0 H Discharge - Discharge Clinical Impression: Wound of right foot Condition: Good Disposition: HOME, SELF-CARE Instructions: Wound Infection ([facility]) Additional Instructions: Your laboratory studies not show any critical pathology today. Your x-rays of her foot did not show any signs of active osteomyelitis at this time. Your CT of your head and chest x-ray also negative for any signs of infection. Did discuss her case with the oncologist Dr. Moss who agrees that we can discharge her home at this time place you on antibiotics and follow-up in their office in the next 3-5 days. Keep her foot elevated return to the ER if any symptoms worsen Tylenol Motrin for pain control. Prescriptions: Cephalexin Monohydrate [Keflex 500 mg Capsule] 500 mg PO Q6H 3 Days capsule Cephalexin Monohydrate [Keflex 500 mg Capsule] 500 mg PO Q6H 7 Days capsule Referrals: LIANE WILKINS MD [Primary Care Provider] - Follow up as needed
== END 2018-03-31 19:15 | disposition home or self-care (01) ==
LOC: ER 11:40
DX: S91.301A Unspecified open wound, right foot, initial encounter (principal)
CPT/HCPCS: 99284; 96365; 96366; 36415; 87040; 87086; 83690; 85025; 85610; 80053; 81001; 82803; 83605; 71046; 73630; 70450; J2543

== ENCOUNTER → 2018-04-16 | Outpatient (CLI) | payer OTHER ==
--- NOTE | 2018-04-16 09:04 | RADIOLOGY REPORT (SQ) ---
EXAM DESCRIPTION: CT CHEST WITH COMPLETED DATE/TIME: 04/16/2018 8:24 am REASON FOR STUDY: COLON CA C18.7 MALIGNANT NEOPLASM OF SIGMOID COLON COMPARISON: PET-CT 12/22/2017 CT chest abdomen pelvis 11/28/2017, and 09/05/2017 CONTRAST TYPE AND DOSE: 100 mL of IV Omnipaque 350- low osmolar. RENAL FUNCTION: Creatinine 0.8 TECHNIQUE: CT scan of the chest performed using helical scanning technique with dynamic intravenous contrast injection. Images reviewed with lung, soft tissue and bone windows. Reconstructed coronal a nd sagittal MPR images reviewed. All images stored on PACS. CT scan of the abdomen and pelvis performed with intravenous and with oral contrastusing helical scan raheem technique with dynamic intravenous contrast injection. Images reviewed with lung, soft tissue a nd bone windows. Reconstructed coronal and sagittal MPR images reviewed. Delayed images for evaluat ion of the urinary system also acquired and evaluated. All images stored on PACS. All CT scanners at this facility use dose modulation, iterative reconstruction, and/or weight based d osing when appropriate to reduce radiation dose to as low as reasonably achievable (ALARA). [facility]: Dose Right [facility]: CareDose [facility]: Dose Right [facility]: Teradose 4D [facility]: [employer] RADIATION DOSE: 58 . LIMITATIONS: None. FINDINGS: CHEST: LUNGS AND PLEURA: In the right upper lobe near the minor fissure, a 6 mm nodule is present on axial i mage 50, and a 5 mm nodule is present on image (were less than 3 mm in size on 09/05/2017). No acute infiltrates. No pleural effusion. No pneumothorax. Airways are patent. HILAR AND MEDIASTINAL STRUCTURES: No identified masses or abnormal nodes. HEART AND VASCULAR STRUCTURES: No aneurysm or dissection. No central pulmonary emboli. No pericardi al effusion. HARDWARE: Functional right permanent central line tip in the superior vena cava. Abandoned left perm anent central line with the tip outside the left subclavian vein axial image 9. Chronic stranding in the soft tissues of around the access hub left anterior chest, unchanged. THYROID AND OTHER SOFT TISSUES: No masses. No adenopathy. BONES: No significant finding. OTHER: No other significant finding. ABDOMEN AND PELVIS: LIVER: Hypodensities in the liver are present which could represent metastatic disease. Consider MRI liver without and with contrast for followup. Liver lesions today are as follows: 2 cm diameter right lobe sub- diaphragmatic surface axial image 12, segment 7 3 x 1 cm right lobe liver subdiaphragmatic surface image 14, segment 8 SPLEEN: Normal size. No focal lesions. PANCREAS: No masses. No significant calcifications. No adjacent inflammation or peripancreatic fluid collections. Pancreatic duct not dilated. GALLBLADDER: No identified stones by CT criteria. No inflammatory changes to suggest cholecystitis. ADRENAL GLANDS: No significant masses or asymmetry. RIGHT KIDNEY AND URETER: No solid masses. No significant calcification. No hydronephrosis or hydroure ter. LEFT KIDNEY AND URETER: No solid masses. No significant calcification. No hydronephrosis or hydrouret er. AORTA AND VESSELS: No aneurysm. No dissection. Renal arteries, SMA, celiac without stenosis. RETROPERITONEUM: No retroperitoneal adenopathy, hemorrhage or masses. BOWEL AND PERITONEAL CAVITY: Patient drank oral contrast. No CT evidence of bowel obstruction. No f ree intraperitoneal air or fluid. Moderate stool throughout the colon. Sigmoid partial colectomy wi th anastomotic viraj on axial image 74 through 78. APPENDIX: Normal. ABDOMINAL WALL: No masses. No hernias. PELVIS: No mass or free fluid. Normal bladder. BONES: No significant or acute findings. OTHER: No other significant finding. IMPRESSION: 6 mm nodules in the right upper lobe near the minor fissure, increased in size compared to CT chest 09/05/2017 Liver lesions are evident on today's study. Consider MRI without and with contrast of the liver for further evaluation TECHNICAL DOCUMENTATION: JOB ID: [id number] Quality ID # [id number]: Final reports with documentation of one or more dose reduction techniques (e.g., Au tomated exposure control, adjustment of the mA and/or kV according to patient size, use of iterative reconstruction technique) 2010 [employer]- All Rights Reserved Reading location - IP/workstation name: [email or web address]
--- NOTE | 2018-04-16 12:21 | RADIOLOGY REPORT (SQ) ---
EXAM DESCRIPTION: CT ABD/PELVIS WITH IV ORAL COMPLETE DATE/TIME: 04/16/2018 8:24 am REASON FOR STUDY: COLON CA C18.7 MALIGNANT NEOPLASM OF SIGMOID COLON FINDINGS: Please see combined report for performance of procedure and radiologic supervision and int erpretation. IMPRESSION: Please see combined report for performance of procedure and radiologic supervision and i nterpretation. Reading location - IP/workstation name: [email or web address]
== END ==
LOC: RAD 08:04
PROVIDERS: ATTEND Internal Medicine
DX: C18.7 Malignant neoplasm of sigmoid colon (principal)
CPT/HCPCS: 71260; 74177

== ENCOUNTER 2018-05-05 03:12 | Emergency (ER) | payer OTHER ==
[2018-05-05] MEDS ORDERED: ONDANSETRON HCL INJ/PF 4 MG/2 ML SDV IV ONE (03:53)
[2018-05-05] MEDS ORDERED: NORMAL SALINE 1000 ML 1,000 ML IV ONE ×2 (03:53→05:35)
--- NOTE | 2018-05-05 04:09 | ER Document Report ---
ED General - General Chief Complaint: Nausea/Vomiting/Diarrhea Stated Complaint: VOMITING,DIARRHEA Time Seen by Provider: 05/05/18 03:53 Notes: Patient is a 52-year-old male presenting to the emergency department complaining of decreased appetite for the last 3 days. Patient states he has vomited x12 today non-bloody and has had 15 episodes of diarrhea also nonbloody. Patient states last 3 episodes of vomiting were bile in nature. Patient denies fever, denies abdominal pain, chest pain, shortness of breath, upper respiratory symptoms.. Patient just states "I feel cold." According to patient's he has been admitted to the hospital multiple times for dehydration and she did not want to get to that point. Patient is currently being treated for colon cancer that has metastasized to his liver and lungs. Patient's last chemo was 1 week ago. Patient is not partaking in radiation. Past medical history: Colon cancer, liver cancer, lung cancer, diabetes, GERD Medications: Cymbalta, oxycodone, OxyContin, trazodone, Prilosec, NovoLog Allergies: None Surgical history: Colon cancer resection TRAVEL OUTSIDE OF THE [place] IN LAST 30 DAYS: No - Related Data Allergies/Adverse Reactions: No Known Allergies Allergy (Verified 03/31/18 11:48) Past Medical History - General Information source: Patient, Relative - Social History Smoking Status: Unknown if Ever Smoked Lives with: Family Family History: Reviewed & Not Pertinent, Other - Unknown; patient reports that he is adopted - Past Medical History Cardiac Medical History: Reports: Hx Hypertension Endocrine Medical History: Reports: Hx Diabetes Mellitus Type 1 Renal/ Medical History: Denies: Hx Peritoneal Dialysis Malignancy Medical History: Reports Hx Colorectal Cancer, Reports Hx Liver Cancer Past Surgical History: Reports: Hx Abdominal Surgery - colon, Other - Partial colectomy Review of Systems - Review of Systems Constitutional: See HPI EENT: See HPI Cardiovascular: See HPI Respiratory: See HPI Gastrointestinal: See HPI Genitourinary: See HPI Male Genitourinary: No symptoms reported Musculoskeletal: No symptoms reported Skin: No symptoms reported Hematologic/Lymphatic: No symptoms reported Neurological/Psychological: No symptoms reported Physical Exam - Vital signs Vitals: Temp Pulse Resp BP Pulse Ox 97.6 F 86 17 141/98 H 96 05/05/18 03:19 05/05/18 03:19 05/05/18 03:19 05/05/18 03:19 05/05/18 03:19 - Notes Notes: GENERAL: Alert, interacts well. HEAD: Normocephalic, atraumatic. EYES: Pupils equal, round, and reactive to light. Extraocular movements intact. ENT: Oral mucosa dry, tongue midline. NECK: Full range of motion. Supple. Trachea midline. LUNGS: Clear to auscultation bilaterally, no wheezes, rales, or rhonchi. No respiratory distress. HEART: Regular rate and rhythm. No murmur ABDOMEN: Soft, non-tender. Non-distended. Bowel sounds present in all 4 quadrants. No McBurney's point tenderness, no Garcia sign. EXTREMITIES: Moves all 4 extremities spontaneously. No edema, normal radial and dorsalis pedis pulses bilaterally. No cyanosis. BACK: no cervical, thoracic, lumbar midline tenderness. No saddle anesthesia, normal distal neurovascular exam. NEUROLOGICAL: Alert and oriented x3. Normal speech. cranial nerves II through XII grossly intact. PSYCH: Normal affect, normal mood. SKIN: Warm, dry, normal turgor. No rashes or lesions noted. Course - Re-evaluation Re-evalutation: 05/05/18 04:09 Patient is currently not tachycardic but does have dry mucous membranes. We will treat for dehydration and vomiting. Will review labs. 05/05/18 05:36 No signs of leukocytosis on lab work. Patient states he has not vomited since arriving to the emergency room. Now complains of a headache. Patient states he has a history of intermittent headaches and has not been able to keep down his at home pain medication due to the vomiting. We will treat for headache in the emergency room. 05/05/18 06:34 Patient states he feels "like a new person". No signs of leukocytosis on labs works no sign of leukopenia. Will prescribe Zofran and Imodium for home use. Discussed need to follow-up with oncology in the next 12-24 hours. Return precautions discussed. - Vital Signs Vital signs: Temp Pulse Resp BP Pulse Ox 97.6 F 86 13 150/89 H 97 05/05/18 03:19 05/05/18 03:19 05/05/18 06:02 05/05/18 06:02 05/05/18 06:02 - Laboratory Result Diagrams: 05/05/18 04:40 05/05/18 04:40 Laboratory results interpreted by me: 05/05/18 05/05/18 04:40 04:40 Seg Neutrophils % 81.0 H Chloride 96 L Carbon Dioxide 34 H Glucose 288 H Alkaline Phosphatase 155 H Discharge - Discharge Clinical Impression: Vomiting Qualifiers: Vomiting type: unspecified Vomiting Intractability: non-intractable Nausea presence: with nausea Qualified Code(s): R11.2 - Nausea with vomiting, unspecified Diarrhea Qualifiers: Diarrhea type: unspecified type Qualified Code(s): R19.7 - Diarrhea, unspecified Condition: Stable Disposition: HOME, SELF-CARE Instructions: Prescribed Antidiarrhea Medications ([facility]), Diarrhea, Nonspecific ([facility]), Antinausea Medication ([facility]), Intravenous (IV) Fluids ([facility]), Vomiting ([facility] ) Additional Instructions: As we discussed you have been seen and treated in the emergency department for vomiting and diarrhea. You should call your oncologist within the next 12-24 hours for follow-up. Please return to the emergency room for any other concerning symptoms. Prescriptions: Loperamide HCl [Imodium 2 mg Capsule] 2 mg PO PRN PRN #21 cap PRN Reason: Diarrhea Ondansetron [Zofran Odt 4 mg Tablet] 1 - 2 tab PO Q4H PRN #15 tab.rapdis PRN Reason: For Nausea/Vomiting Referrals: LIANE WILKINS MD [Primary Care Provider] - Follow up as needed
[2018-05-05 04:59] LABS: ABSOLUTE LYMPHOCYTES (AUTO) 1.1 10^3/uL (0.5-4.7); ABSOLUTE MONOCYTES (AUTO) 0.4 10^3/uL (0.1-1.4); ABSOLUTE NEUT (AUTO) 6.6 10^3/uL (1.7-8.2); BASOPHILS % (AUTO) 0.4 % (0-2); EOSINOPHILS % (AUTO) 0.4 % (0-6); HEMATOCRIT 43.3 % (37.9-51.0); LYMPHOCYTES % (AUTO) 13.1 % (13-45); MEAN CORPUSCULAR HEMOGLOBIN 30.5 pg (27.0-33.4); MEAN CORPUSCULAR HGB CONC 34.6 g/dL (32.0-36.0); MEAN CORPUSCULAR VOLUME 88 fl (80-97); MONOCYTES % (AUTO) 5.1 % (3-13); PLATELET COUNT 169 10^3/uL (150-450); RED BLOOD COUNT 4.91 10^6/uL (4.35-5.55); RED CELL DISTRIBUTION WIDTH 13.8 % (11.5-14.0); TOTAL CELLS COUNTED % (AUTO) 100 %; WHITE BLOOD COUNT 8.2 10^3/uL (4.0-10.5)
[2018-05-05 05:23] LABS: ALANINE AMINOTRANSFERASE 47 U/L (21-72); ALBUMIN 4.1 g/dL (3.5-5.0); ALKALINE PHOSPHATASE 155 U/L (38-126); ANION GAP 10 (5-19); ASPARTATE AMINO TRANSFERASE 45 U/L (17-59); BILIRUBIN,DIRECT 0.3 mg/dL (0.0-0.4); BILIRUBIN,TOTAL 0.9 mg/dL (0.2-1.3); BLOOD UREA NITROGEN 14 mg/dL (7-20); CALCIUM 9.7 mg/dL (8.4-10.2); CARBON DIOXIDE 34 mmol/L (22-30); CHLORIDE 96 mmol/L (98-107); GLUCOSE 288 mg/dL (75-110); LIPASE 51.4 U/L (23-300); SODIUM 140.1 mmol/L (137-145); TOTAL PROTEIN 7.7 g/dL (6.3-8.2)
[2018-05-05] MEDS ORDERED: DIPHENHYDRAMINE HCL 50 MG/ML VIAL IV ONE (05:35)
[2018-05-05] MEDS ORDERED: KETOROLAC TROMETHAMINE INJ/PF 30 MG/1 ML SDV IV ONE (05:35)
[2018-05-05 07:19] VITALS: BP 164/93
== END 2018-05-05 07:18 | disposition home or self-care (01) ==
LOC: ER 03:12
DX: R11.2 Nausea with vomiting, unspecified (principal); R19.7 Diarrhea, unspecified; R51 Headache; I10 Essential (primary) hypertension; E10.9 Type 1 diabetes mellitus without complications; Z85.038 Personal history of other malignant neoplasm of large intestine; Z85.05 Personal history of malignant neoplasm of liver
CPT/HCPCS: 36591; 99284; 96361; 96374; 96375; 36415; 83690; 85025; 80053; J1200; J1885; J2405; J7030

== ENCOUNTER → 2018-05-07 | Outpatient (CLI) | payer OTHER ==
--- NOTE | 2018-05-07 13:23 | RADIOLOGY REPORT (SQ) ---
EXAM DESCRIPTION: MRI HEAD COMBO COMPLETED DATE/TIME: 05/07/2018 10:25 am REASON FOR STUDY: COLON CA (C18.7) C18.7 MALIGNANT NEOPLASM OF SIGMOID COLON Dizziness, fatigue, headache, memory loss, off balance, slurred speech COMPARISON: PET-CT 12/22/2017 CT brain 03/31/2018 TECHNIQUE: Multiplanar imaging includes noncontrasted T1, T2, FLAIR, diffusion with ADC map and post gadolinium contrast T1 sequences. Images stored on PACS. CONTRAST TYPE AND DOSE: 20 mL Dotarem. RENAL FUNCTION: GFR > 60. LIMITATIONS: None. FINDINGS: ANATOMY: No anomalies. Normal vascular flow voids. Pituitary fossa normal. CSF SPACES: Normal in size and contour. No hemorrhage. CEREBRUM: Sulci and gyri normal in size and contour. Normal white matter signal on FLAIR imaging. No evidence of hemorrhage, mass, or extraaxial fluid collection. No abnormal enhancement post contrast. POSTERIOR FOSSA: No signal alteration. No hemorrhage. No edema, masses, or mass effect. Internal jo tory canals, cerebellopontine angles, mastoids normal. No enhancing lesions. No abnormal enhancement post contrast. DIFFUSION IMAGING: Negative for acute or subacute infarction. ORBITS: No masses. Globes normal. PARANASAL SINUSES: No fluid levels. Mucosa normal. OTHER: No other significant finding. IMPRESSION: NORMAL MRI OF THE BRAIN WITHOUT AND WITH INTRAVENOUS GADOLINIUM CONTRAST. EVIDENCE OF ACUTE STROKE: NO. TECHNICAL DOCUMENTATION: JOB ID: [id number] [employer]- All Rights Reserved Reading location - IP/workstation name: [email or web address] [email or web address]]
--- NOTE | 2018-05-07 13:34 | RADIOLOGY REPORT (SQ) ---
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 CONTRAST TYPE AND DOSE: 20 mL Dotarem. RENAL FUNCTION: GFR > 60. LIMITATIONS: None. FINDINGS: LIVER: Normal size. Multiple less than 2 cm liver masses are present with peripheral rim enhancement on the postcontrast T1 weighted images worrisome for metastatic disease. These are best demonstrated on the out of phase T1 weighted images at the postcontrast T1 weighted images as follows : 1.4 cm posterior right lobe liver subdiaphragmatic surface, out of phase T1 image 17 1 cm left lobe sub- diaphragmatic surface, out of phase T1 image number 8 1.4 cm anterior left lobe liver, axial T1 out of phase image 11 1 cm posterior right lobe liver axial T1 out of phase image 13 1.5 cm inferior right lobe liver axial T1 out of phase image 16. SPLEEN: Normal size. No focal lesions. PANCREAS: No masses. No adjacent inflammation or peripancreatic fluid collections. Pancreatic duct no t dilated. GALLBLADDER: No masses. No stones. No gallbladder wall thickening or pericholecystic fluid. ADRENAL GLANDS: No significant masses or asymmetry. RIGHT KIDNEY AND URETER: No masses. No hydronephrosis. LEFT KIDNEY AND URETER: No masses. No hydronephrosis. AORTA AND VESSELS: No aneurysm. No dissection. Renal arteries, SMA, celiac without stenosis. RETROPERITONEUM: No retroperitoneal adenopathy, hemorrhage or masses. BOWEL: Not well seen ABDOMINAL WALL AND PERITONEUM: No hernias. No free fluid. BONES: No acute or significant findings. OTHER: No other significant finding. IMPRESSION: Multiple small less than 2 cm liver metastatic lesions TECHNICAL DOCUMENTATION: JOB ID: [id number]- All Rights Reserved Reading location - IP/workstation name: [facility]
== END ==
LOC: RAD 08:20
PROVIDERS: ATTEND Internal Medicine
DX: C18.7 Malignant neoplasm of sigmoid colon (principal); C78.7 Secondary malignant neoplasm of liver and intrahepatic bile duct
CPT/HCPCS: 70553; 74183; A9576

== ENCOUNTER → 2018-08-05 | Outpatient (CLI) | payer OTHER ==
--- NOTE | 2018-08-05 11:08 | RADIOLOGY REPORT (SQ) ---
EXAM DESCRIPTION: CT CHEST WITH COMPLETED DATE/TIME: 08/05/2018 10:19 am REASON FOR STUDY: COLON CANCER C18.7 MALIGNANT NEOPLASM OF SIGMOID COLON COMPARISON: 04/16/2018 TECHNIQUE: CT scan of the chest performed using helical scanning technique with dynamic intravenous contrast injection. Images reviewed with lung, soft tissue and bone windows. Reconstructed coronal and sagittal MPR and MIP images reviewed. All images stored on PACS. All CT scanners at this facility use dose modulation, iterative reconstruction, and/or weight based d osing when appropriate to reduce radiation dose to as low as reasonably achievable (ALARA). [facility]: Dose Right [facility]: CareDose [facility]: Dose Right [facility]: Teradose 4D [facility]: [employer] CONTRAST TYPE AND DOSE: 100 mL Omnipaque 350- low osmolar. RENAL FUNCTION: BUN 11 creatinine 0.6 RADIATION DOSE: . LIMITATIONS: None. FINDINGS: LUNGS AND PLEURA: There is 9 mm sub solid nodule in the left upper lobe laterally on image 28 that is more prominent than on the prior study. There is a 10 mm nodule on the right on image 56 that is larger. Near to this there is slightly spiculated area of density that extends toward the h ilum. This likewise is more prominent. See images 55 and 56. HILAR AND MEDIASTINAL STRUCTURES: Right hilar adenopathy. HEART AND VASCULAR STRUCTURES: No aneurysm or dissection. No central pulmonary emboli. No pericardi al effusion. HARDWARE: Injection port on the left. UPPER ABDOMEN: See separate report of the CT of the abdomen. THYROID AND OTHER SOFT TISSUES: No masses. No adenopathy. BONES: No significant finding. OTHER: No other significant finding. IMPRESSION: Increased metastatic disease in the lungs. Right hilar adenopathy. TECHNICAL DOCUMENTATION: JOB ID: [id number] Quality ID # [id number]: Final reports with documentation of one or more dose reduction techniques (e.g., Au tomated exposure control, adjustment of the mA and/or kV according to patient size, use of iterative reconstruction technique) 2010 [employer]- All Rights Reserved Reading location - IP/workstation name: [email or web address]
--- NOTE | 2018-08-05 11:19 | RADIOLOGY REPORT (SQ) ---
EXAM DESCRIPTION: CT ABD/PELVIS WITH IV ORAL COMPLETED DATE/TIME: 08/05/2018 10:18 am REASON FOR STUDY: COLON CANCER C18.7 MALIGNANT NEOPLASM OF SIGMOID COLON COMPARISON: 04/16/2018 TECHNIQUE: CT scan of the abdomen and pelvis performed using helical scanning technique with dynamic intravenous contrast injection. Oral contrast. Images reviewed with lung, soft tissue, and bone win dows. Reconstructed coronal and sagittal MPR images reviewed. Delayed images for evaluation of the ur inary system also acquired. All images stored on PACS. All CT scanners at this facility use dose modulation, iterative reconstruction, and/or weight based d osing when appropriate to reduce radiation dose to as low as reasonably achievable (ALARA). [facility]: Dose Right [facility]: CareDose [facility]: Dose Right [facility]: Teradose 4D [facility]: [employer]You[employer]zz CONTRAST TYPE AND DOSE: contrast/concentration: Isovue 350.00 mg/ml; Total Contrast Delivered: 100.0 ml; Total Saline Delivered: 72.0 ml RENAL FUNCTION: BUN 11 creatinine 0.6 RADIATION DOSE: CT Rad equipment meets quality standard of care and radiation dose reduction techniq ues were employed. CTDIvol: 14.9 - 16.9 mGy. DLP: 2583 mGy-cm.. LIMITATIONS: None. FINDINGS: LOWER CHEST: See separate report of the CT of the chest. LIVER: There is significant increase in number of low-density lesions in the liver compared to the ea ier study. SPLEEN: Normal size. No focal lesions. PANCREAS: No masses. No significant calcifications. No adjacent inflammation or peripancreatic fluid collections. Pancreatic duct not dilated. GALLBLADDER: No identified stones by CT criteria. No inflammatory changes to suggest cholecystitis. ADRENAL GLANDS: No significant masses or asymmetry. RIGHT KIDNEY AND URETER: No solid masses. No significant calcifications. No hydronephrosis or hyd roureter. LEFT KIDNEY AND URETER: No solid masses. No significant calcifications. No hydronephrosis or hydr oureter. AORTA AND VESSELS: No aneurysm. No dissection. Renal arteries, SMA, celiac without stenosis. RETROPERITONEUM: No retroperitoneal adenopathy, hemorrhage or masses. BOWEL AND PERITONEAL CAVITY: No masses or inflammatory changes. No free fluid or peritoneal masses. APPENDIX: Normal. PELVIS: There is nodular protrusion of the prostate gland into the base of the bladder. No pelvic ma sses or fluid collections. ABDOMINAL WALL: No masses. No hernias. BONES: No significant or acute findings. OTHER: No other significant finding. IMPRESSION: 1. There is increasing metastatic disease to the liver. 2. There is somewhat nodular protrusion of the prostate gland into the base of the bladder. TECHNICAL DOCUMENTATION: JOB ID: [id number] Quality ID # [id number]: Final reports with documentation of one or more dose reduction techniques (e.g., Au tomated exposure control, adjustment of the mA and/or kV according to patient size, use of iterative reconstruction technique) 2010 [employer]- All Rights Reserved Reading location - IP/workstation name: [email or web address]
== END ==
LOC: RAD 09:25
PROVIDERS: ATTEND Physician Assistant Medical
DX: C18.7 Malignant neoplasm of sigmoid colon (principal); C78.7 Secondary malignant neoplasm of liver and intrahepatic bile duct
CPT/HCPCS: 71260; 74177

== ENCOUNTER → 2018-09-10 | Outpatient (CLI) | payer OTHER ==
--- NOTE | 2018-09-10 13:58 | RADIOLOGY REPORT (SQ) ---
EXAM DESCRIPTION: CHEST 2 VIEWS COMPLETED DATE/TIME: 09/10/2018 1:48 pm REASON FOR STUDY: SOB (R06.02) COMPARISON: None. EXAM PARAMETERS: NUMBER OF VIEWS: two views TECHNIQUE: Digital Frontal and Lateral radiographic views of the chest acquired. RADIATION DOSE: NA LIMITATIONS: none FINDINGS: LUNGS AND PLEURA: No opacities, masses or pneumothorax. No pleural effusion. MEDIASTINUM AND HILAR STRUCTURES: No masses or contour abnormalities. HEART AND VASCULAR STRUCTURES: Heart normal size. No evidence for failure. BONES: No acute findings. HARDWARE: Right internal jugular based chest port with catheter tip overlying proximal superior vena cava. Left subclavian based chest port with catheter tip at the level of the subclavian vein, unchan ged. OTHER: No other significant finding. IMPRESSION: No evidence of acute cardiopulmonary process. TECHNICAL DOCUMENTATION: JOB ID: [id number] [employer]- All Rights Reserved Reading location - IP/workstation name: [email or web address]
== END ==
LOC: RAD 13:28
PROVIDERS: ATTEND Physician Assistant Medical
DX: R06.02 Shortness of breath (principal)
CPT/HCPCS: 71046